=== PATIENT | male | born 1945 | race Caucasian/White ===

== ENCOUNTER 2018-02-05 20:33 | Inpatient (IN) | payer MEDICARE ==
[~2018-02-05] VITALS: Ht 180.3 cm; Wt 99.4 kg
[~2018-02-05 20:33] MED LIST: CLOP75; ETOD400CR; VALS80
[2018-02-05 21:27] LABS: BASOPHILS ABSOLUTE AUTO 0.11 K/mm3 (0.00-0.23); BASOPHILS PERCENT AUTO 1 % (0-2); EOSINOPHILS ABSOLUTE AUTO 0.45 K/mm3 (0.00-0.68); EOSINOPHILS PERCENT AUTO 6 % (0-6); Hematocrit 43.7 % (37.0-53.0); Hemoglobin 14.7 g/dL (13.5-17.5); IMMATURE GRAN ABSOLUTE AUTO 0.01 K/mm3 (0.00-0.10); IMMATURE GRAN PERCENT AUTO 0 % (0-1); LYMPHOCYTES ABSOLUTE AUTO 1.72 K/mm3 (0.84-5.20); LYMPHOCYTES PERCENT AUTO 23 % (21-46); MONOCYTES ABSOLUTE AUTO 0.76 K/mm3 (0.16-1.47); MONOCYTES PERCENT AUTO 10 % (4-13); Mean Corpuscular HGB 29.2 pg (26.0-34.0); Mean Corpuscular HGB Conc 33.6 g/dL (31.5-36.5); Mean Corpuscular Volume 87 fL (80-100); NEUTROPHILS ABSOLUTE AUTO 4.55 K/mm3 (1.96-9.15); NEUTROPHILS PERCENT AUTO 60 % (41-73); Platelet Count 232 K/mm3 (150-400); RDW Coefficient Variation 11.9 % (11.7-14.2); RDW Standard Deviation 38.2 fL (35.1-46.3); Red Blood Cell Count 5.04 M/mm3 (4.30-5.90)
[2018-02-05] MEDS ORDERED: GABA300 (21:49)
[2018-02-05] MEDS ORDERED: BP MEDICATION (21:50)
[2018-02-05 21:51] LABS: Albumin, Blood 3.9 g/dL (3.4-5.0); Bilirubin, Total 1.5 mg/dL (0.1-1.0); Bun/Creatinine Ratio 9.3 (12.0-20.0); Calcium, Blood 9.5 mg/dL (8.5-10.1); Creatinine, Blood 1.4 mg/dL (0.60-1.20); Potassium, Blood 3.6 mmol/L (3.5-5.5); Total Protein, Blood 7.9 g/dL (6.4-8.2)
[2018-02-05 23:01] LABS: Troponin I 0.028 ng/mL (0.000-0.040)
[2018-02-05 23:03] LABS: Thyroid Stimulating Hormone 1.36 uIU/mL (0.360-4.800)
[2018-02-06 00:18] LABS: Source, Urine Clean Catch
[2018-02-06 00:22] LABS: Bilirubin, Urine Neg (Neg); Blood, Urine 1+ (Neg); Glucose Qualitative, Urine Neg (Neg); Ketones, Urine 3+ (Neg); Leukocyte Esterase, Urine 1+ (Neg); Nitrite, Urine Neg (Neg); Protein, Urine 2+ (Neg); Urobilinogen, Urine NORM (Normal)
[2018-02-06 00:28] LABS: Appearance, Urine Clear (Clear); Color, Urine Yellow (P-Yellow)
[2018-02-06 00:29] LABS: Red Blood Cells, Urine 0-2 /hpf (0-2)
[2018-02-06 00:30] LABS: Bacteria Many /hpf; Mucus Mod (0-Heavy); Squamous Epithelial Cells Not Seen /hpf (Few)
[2018-02-06 00:41] LABS: CHOL/HDL RATIO 3.2; Cholesterol 165 mg/dL (50-200); HDL Cholesterol 52 mg/dL (>39); LDL/HDL RATIO 1.6; Low Density Lipoprotein Chol 84 mg/dL (0-110); Triglycerides 144 mg/dL (30-160); Very Low Density Lipoprot Chol 28 mg/dL (6-32)
[2018-02-06] MEDS ORDERED: GABA300 PO (02:07)
[2018-02-06] MEDS ORDERED: METO25ER PO (02:10)
== END 2018-02-06 17:40 | disposition short-term general hospital (02) | DRG 287 ==
LOC: ER 20:33 → PCU 02-06 00:19
PROVIDERS: Emergency Medicine
PROC: B2111ZZ Fluoroscopy of Multiple Coronary Arteries using Low Osmolar Contrast (ICD-10-PCS; principal; 2018-02-06)
PROC: B241ZZ3 Ultrasonography of Multiple Coronary Arteries, Intravascular (ICD-10-PCS; 2018-02-06)
DX: I25.110 Atherosclerotic heart disease of native coronary artery with unstable angina pectoris (principal); E78.5 Hyperlipidemia, unspecified; G62.9 Polyneuropathy, unspecified; G89.4 Chronic pain syndrome; R63.8 Other symptoms and signs concerning food and fluid intake; I11.9 Hypertensive heart disease without heart failure; I25.2 Old myocardial infarction; E66.09 Other obesity due to excess calories; G47.30 Sleep apnea, unspecified; Z95.5 Presence of coronary angioplasty implant and graft; Z86.73 Personal history of transient ischemic attack (TIA), and cerebral infarction without residual deficits; N40.1 Benign prostatic hyperplasia with lower urinary tract symptoms; N13.9 Obstructive and reflux uropathy, unspecified; K25.9 Gastric ulcer, unspecified as acute or chronic, without hemorrhage or perforation
CPT/HCPCS: 36415; 71046; 80053; 80061; 81001; 84443; 84484; 85025; 85347; 85379; 87086; 92978; 93005; 93010; 93306; 93454; 96374; 99152; 99153; 99285-25; C1753; C1769; C1887; C1894; J1644; J1650; J2250; J3010; J7030; J7040; Q9967

== ENCOUNTER 2018-12-22 18:16 | Emergency (ER) | payer MEDICARE ==
[~2018-12-22] VITALS: Ht 180.3 cm; Wt 111.1 kg
[~2018-12-22 18:16] MED LIST changes: +BP MEDICATION; +GABA300; +GABA300 PO; +METO25ER PO
[2018-12-22 18:46] LABS: BASOPHILS ABSOLUTE AUTO 0.06 K/mm3 (0.00-0.23); BASOPHILS PERCENT AUTO 1 % (0-2); EOSINOPHILS ABSOLUTE AUTO 0.05 K/mm3 (0.00-0.68); EOSINOPHILS PERCENT AUTO 1 % (0-6); Hematocrit 39.2 % (37.0-53.0); Hemoglobin 12.7 g/dL (13.5-17.5); IMMATURE GRAN ABSOLUTE AUTO 0.03 K/mm3 (0.00-0.10); IMMATURE GRAN PERCENT AUTO 0 % (0-1); LYMPHOCYTES ABSOLUTE AUTO 1.37 K/mm3 (0.84-5.20); LYMPHOCYTES PERCENT AUTO 13 % (21-46); MONOCYTES ABSOLUTE AUTO 0.91 K/mm3 (0.16-1.47); MONOCYTES PERCENT AUTO 9 % (4-13); Mean Corpuscular HGB 28.9 pg (26.0-34.0); Mean Corpuscular HGB Conc 32.4 g/dL (31.5-36.5); Mean Corpuscular Volume 89 fL (80-100); Mean Platelet Volume 9.1 fL (9.1-12.4); NEUTROPHILS ABSOLUTE AUTO 8.33 K/mm3 (1.96-9.15); NEUTROPHILS PERCENT AUTO 77 % (41-73); Platelet Count 324 K/mm3 (150-400); RDW Coefficient Variation 12.2 % (11.7-14.2); RDW Standard Deviation 39.9 fL (35.1-46.3); Red Blood Cell Count 4.39 M/mm3 (4.30-5.90); White Blood Cell Count 10.75 K/mm3 (4.00-11.30)
[2018-12-22] MEDS ORDERED: LOSARTAN POTAS100 MG PO (18:49)
[2018-12-22] MEDS ORDERED: OXYC5 PO (18:50)
[2018-12-22] MEDS ORDERED: ROSU5 PO (18:50)
[2018-12-22] MEDS ORDERED: Mirapex0.25 MG PO (18:51)
[2018-12-22] MEDS ORDERED: FERSU300 PO (18:52)
[2018-12-22] MEDS ORDERED: Aspir 8181 MG PO (18:52)
[2018-12-22] MEDS ORDERED: DULO30 PO (18:53)
[2018-12-22] MEDS ORDERED: METO50 PO (18:54)
[2018-12-22 19:02] LABS: Albumin, Blood 3.3 g/dL (3.4-5.0); Albumin/Globulin Ratio 0.7 (0.8-1.8); Bun/Creatinine Ratio 9.6 (12.0-20.0); Calcium, Blood 9.6 mg/dL (8.5-10.1); Creatinine, Blood 2.18 mg/dL (0.60-1.20); Globulin, Blood 4.9 g/dL (2.2-4.0); Potassium, Blood 3.4 mmol/L (3.5-5.5); Total Protein, Blood 8.2 g/dL (6.4-8.2)
[2018-12-22] MEDS ORDERED: ONDA4ODT MM (19:59)
[2019-01-24] MEDS ORDERED: DULO60 PO (19:12)
[2019-01-24] MEDS ORDERED: METO50ER PO (23:10)
[2019-01-24] MEDS ORDERED: ACET500 PO (23:27)
[2019-01-31] MEDS ORDERED: METO25ER PO (17:10)
[2019-01-31] MEDS ORDERED: CLON.1 PO (17:11)
[2019-01-31] MEDS ORDERED: Avodart0.5 MG PO (17:11)
[2019-01-31] MEDS ORDERED: HYDRA25 PO (17:12)
[2019-01-31] MEDS ORDERED: TAMS.4ER PO (17:13)
== END 2018-12-22 20:57 | disposition home or self-care (01) ==
LOC: ER 18:16
PROVIDERS: Emergency Medicine
DX: M54.5 Low back pain (principal); G89.29 Other chronic pain; R11.2 Nausea with vomiting, unspecified; R53.1 Weakness; I10 Essential (primary) hypertension; Z88.0 Allergy status to penicillin; Z88.2 Allergy status to sulfonamides; Z88.5 Allergy status to narcotic agent; Z79.899 Other long term (current) drug therapy
CPT/HCPCS: 80053; 83690; 85025; 99283; J7030

== ENCOUNTER 2019-01-16 13:55 | Inpatient (IN) | payer MEDICARE ==
[~2019-01-16] VITALS: Ht 177.8 cm; Wt 110.2 kg
[~2019-01-16 13:55] MED LIST changes: +Aspir 8181 MG PO; +DULO30 PO; +FERSU300 PO; +LOSARTAN POTAS100 MG PO; +METO50 PO; +Mirapex0.25 MG PO; +ONDA4ODT MM; +OXYC5 PO; +ROSU5 PO
[2019-01-16 15:09] LABS: BASOPHILS ABSOLUTE AUTO 0.07 K/mm3 (0.00-0.23); BASOPHILS PERCENT AUTO 1 % (0-2); EOSINOPHILS ABSOLUTE AUTO 0.19 K/mm3 (0.00-0.68); EOSINOPHILS PERCENT AUTO 2 % (0-6); Hematocrit 38.7 % (37.0-53.0); Hemoglobin 12.3 g/dL (13.5-17.5); IMMATURE GRAN ABSOLUTE AUTO 0.03 K/mm3 (0.00-0.10); IMMATURE GRAN PERCENT AUTO 0 % (0-1); LYMPHOCYTES PERCENT AUTO 24 % (21-46); MONOCYTES ABSOLUTE AUTO 0.83 K/mm3 (0.16-1.47); MONOCYTES PERCENT AUTO 9 % (4-13); Mean Corpuscular HGB 28.3 pg (26.0-34.0); Mean Corpuscular HGB Conc 31.8 g/dL (31.5-36.5); Mean Corpuscular Volume 89 fL (80-100); Mean Platelet Volume 9.6 fL (9.1-12.4); NEUTROPHILS ABSOLUTE AUTO 6.01 K/mm3 (1.96-9.15); NEUTROPHILS PERCENT AUTO 64 % (41-73); Platelet Count 235 K/mm3 (150-400); RDW Coefficient Variation 12.5 % (11.7-14.2); RDW Standard Deviation 41.1 fL (35.1-46.3); Red Blood Cell Count 4.34 M/mm3 (4.30-5.90); White Blood Cell Count 9.43 K/mm3 (4.00-11.30)
[2019-01-16 15:27] LABS: Albumin, Blood 3.4 g/dL (3.4-5.0); Albumin/Globulin Ratio 0.8 (0.8-1.8); Bilirubin, Total 1.5 mg/dL (0.1-1.0); Creatinine, Blood 2.16 mg/dL (0.60-1.20); Globulin, Blood 4.4 g/dL (2.2-4.0); Potassium, Blood 3.9 mmol/L (3.5-5.5); Total Protein, Blood 7.8 g/dL (6.4-8.2)
[2019-01-17 04:06] LABS: Bun/Creatinine Ratio 10.7 (12.0-20.0); Calcium, Blood 8.7 mg/dL (8.5-10.1); Creatinine, Blood 2.15 mg/dL (0.60-1.20); Potassium, Blood 3.8 mmol/L (3.5-5.5)
[2019-01-17 04:17] LABS: International Normalized Ratio 1.01; Prothrombin Time Results 10.7 Sec (9.7-11.5)
--- NOTE | 2019-01-17 04:17 | NUR ---
Patient admitted at the beginning of the shift. pain associated with lt hip has been sharp and constant, good pain relief with medications and repositioning. Patient has urgency incontinence and wears and attends. He is hard of hearing with low voices. bed changed this am, dilaudid given for acute lt hip pain after movement. patient also had nausea after turning with assisstance.
--- NOTE | 2019-01-17 11:23 | NUR ---
PT TAKEN TO DAY SURGERY AT APPROXIMATELY 1042. WILL CONTINUE TO MONITOR.
--- NOTE | 2019-01-17 16:20 | NUR ---
PT ARRIVED BACK TO THE ROOM AT APPROXIMATELY 1345. PT ALERT AND ORIENTED, DENIED PAIN. AQUACEL DRESSING TO L HIP C/D/I.
--- NOTE | 2019-01-17 18:40 | NUR ---
SHIFT SUMMARY PAIN HAS BEEN MANAGED WITH OXYCODONE POST-OP. PT IS TOLERATING PO WELL. VSS. WILL MONITOR UNTIL REPORT TO ONCOMING RN.
--- NOTE | 2019-01-18 07:19 | NUR ---
SUMMARY: POD 1 LEFT HIP FX PINNING BY DR. CONWAY. VSS, AFEBRILE, TOLERATED REG DIET WITH 1 EPISODE OF N/V IN NOC THAT WEA RELIEVED BY IV REGLAN. PT UP WITH 1 ASSIST FWW AND GB FOR 50 FOOT WALK AND BRP. CONFUSED @ TIMES BUT USES CALL LIGHT APPROPRIATELY. ANTICIPATE PT/OT LATER THIS DAY AND PROBABLE SNF TRANSFER BEFORE RETURNING HOME WITH .
--- NOTE | 2019-01-18 15:55 | NUR ---
SHIFT SUMMARY POD1 L-HIP FX REPAIR. VSS, A0X4 DURING SHIFT. PT WALKED WITH PT/OT DURING SHIFT, TOLERATED WELL. PAIN MANAGED WITH OXY 10MG X1 PRN AND SCHEDULED TYLENOL. MEDICATED FOR NAUSEA X1 WITH NEW ORDER, EFFECTIVE PER PT REPORT. PT HOPEFUL FOR HOME WITH HOME HEALTH TOMORROW.
--- NOTE | 2019-01-19 07:00 | NUR ---
REPORT FROM SUMMER RN. ASSUMED PT CARE. PT LYING IN POSITION OF COMFORT.
--- NOTE | 2019-01-19 07:45 | NUR ---
VSS. ASSESSMENT CHARTED.
--- NOTE | 2019-01-19 07:55 | NUR ---
PT MEDICATED WITH SCHEDULED MEDS. PT STATES PAIN MANAGEABLE. WILL CONT TO MONITOR.
--- NOTE | 2019-01-19 08:45 | NUR ---
PT SITTING UP IN BED, EATING BREAKFAST. NADN. CALL LIGHT IN REACH.
--- NOTE | 2019-01-19 08:48 | NUR ---
PT SITTING UP IN CHAIR. PT EATING BREAKFAST.
--- NOTE | 2019-01-19 09:30 | NUR ---
ASSISTED PT UP TO CHAIR, USES WALKER APPROPRIATELY. PT HAD SATURATED BED IN URINE. PER CARE PROVIDED, LINENS REMOVED. NEW PULLUP PLACED. CALL LIGHT IN REACH.
--- NOTE | 2019-01-19 11:23 | NUR ---
PT MEDICATED WITH PRN MEDS. PT WORKING WITH THERAPY,
--- NOTE | 2019-01-19 12:13 | NUR ---
BROUGHT CLOTHES. PT SITTING IN CHAIR. PAIN IMPROVED.
--- NOTE | 2019-01-19 13:15 | NUR ---
PT SITTING UP IN CHAIR. NADN. CALL LIGHT IN REACH.
--- NOTE | 2019-01-19 13:57 | NUR ---
Spiritual care visit conducted. Povided pastoral family court counsellor, comapnionship and prayer. Patient and spouse, Celia responded well.
--- NOTE | 2019-01-19 14:00 | NUR ---
PT SPOUSE TO [place] "WE NEED SOME HELP IN HERE, HE FELL," THIS RN TO ROOM, PT NOTED ON FLOOR ON RIGHT HIP, WEDGED BETWEEN CHAIR AND SINK, TANGELED IN WALKER. THIS RN CALLED FOR ASSITANCE. CHARITY WITH PT, SOURAV RN TO ROOM. PT ROLLED TO LEFT SIDE AND ONTO KNEES, GAIT BELT USED AND WALKER TO STAND PT. REDNESS TO FOREHEAD, SKIN TEAR TO LEFT FA. SKIN TEAR CLEANED AND DRESSED. PT DENIES PAIN. CHARGE NURSE AWARE"
--- NOTE | 2019-01-19 14:05 | NUR ---
PT BACK IN CHAIR WITH STRICT INSTRUCTIONS TO CALL FOR ANY ASSISTANCE. TAB ALARM IN PLACE. 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
--- NOTE | 2019-01-19 14:20 | NUR ---
SPOKE WITH DR CONWAY RE PT FALL. NO ORDERS RECEIVED. PLAN TO NOTIFY PT HOSPITALIST DR RAMIREZ.
--- NOTE | 2019-01-19 15:20 | NUR ---
ATTEMPT TO CALL DR RAMIREZ AGAIN. PT IN NO DISTRESS. FAMILY AT BEDSIDE AWAITING PLAN UPDATE.
--- NOTE | 2019-01-19 17:15 | NUR ---
ASSISTED PT TO IMAGING CART FOR STAT XRAYS. PT CONFUSED, WOBBLY ON LEGS.
--- NOTE | 2019-01-19 18:38 | NUR ---
DR RAMIREZ AWARE OF NEGATIVE IMAGING. PT UPDATED. PLAN TO KEEP PT OVERNIGHT FOR RE-EVAL WITH PROVIDER AND THERAPY TMRW.
--- NOTE | 2019-01-20 05:14 | NUR ---
NO ACUTE CHANGES. NO ADVERSE ISSUES AFTER HIS FALL ON DAYSHIFT. HE HAS SLEPT THROUGHTOUT THE NIGHT. MOVING TO POSITION OF COMFORT.HE IS INCONTINENT OF URINE. CALL LIGHT IN REACH.
--- NOTE | 2019-01-20 08:29 | NUR ---
DR SHEARER HERE EARLIER, DISCUSSED PT'S STATUS INCLUDING VS, MEDICATIONS.
--- NOTE | 2019-01-20 13:35 | NUR ---
DR VASU CONWAY BEEN TO SEE PT RECENTLY.
--- NOTE | 2019-01-20 17:28 | NUR ---
DISCUSSED PT'S STATUS WITH DR SHEARER.
--- NOTE | 2019-01-20 19:05 | NUR ---
SHIFT SUMMARY PT EATING AND DRINKING. PT BEEN ASSISTED WITH ADL'S PRN. PT BEEN ENC UP WITH ASSIST. TAB ALARM BEEN IN PLACE, PT USING CALL LIGHT APPR. PT BEEN ENC WITH BOWEL CARE.
--- NOTE | 2019-01-21 04:49 | NUR ---
PATIENT HAS SLEPT FOR HALF OF THE NIGHT. HE IS INTERMITTENTLY INCONTINENT. WE WALKED IN THE [place] AND HE DID VERY WELL. C/O OF LT KNEE PAIN FROM AN OLD INJURY AND POSSIBLY FROM HIS FALL YESTERDAY. APPROPRIATE WITH CALL LIGHT AND UNDERSTANDS NOT TO GET OUT OF BED BY HIS SELF. CALL LIGHT WITHIN REACH.
[2019-01-21 07:05] LABS: Hemoglobin 11.4 g/dL (13.5-17.5)
[2019-01-21 07:19] LABS: Bun/Creatinine Ratio 19.4 (12.0-20.0); Calcium, Blood 8.8 mg/dL (8.5-10.1); Creatinine, Blood 2.63 mg/dL (0.60-1.20); Potassium, Blood 4.8 mmol/L (3.5-5.5)
--- NOTE | 2019-01-21 12:00 | NUR ---
DISCHARGE TO [facility] PT EATING AND DRINKING. PASSING GAS. PT GIVEN MULT BOWEL CARE THIS AM. REPORTS FEELING IF HE WILL HAVE BM SOON. PT TO SNF BY TRANSPORT WITH BELONGINGS AND SCRIPTS. FAMILY WAS AWARE YESTERDAY THAT PT WAS GOING TO SNF TODAY. BUTTON AND BUCKLE MAKER ASSISTED WITH DISCHARGE. PT SENT WITH CPAP. REPORT GIVEN TO CLARENCE AT [facility] PT WAS TAKEN OUT AT 11:40 BY TRANSPORT.
[2019-01-24] MEDS ORDERED: DULO60 PO (19:12)
[2019-01-24] MEDS ORDERED: METO50ER PO (23:10)
[2019-01-24] MEDS ORDERED: ACET500 PO (23:27)
[2019-01-31] MEDS ORDERED: METO25ER PO (17:10)
[2019-01-31] MEDS ORDERED: CLON.1 PO (17:11)
[2019-01-31] MEDS ORDERED: Avodart0.5 MG PO (17:11)
[2019-01-31] MEDS ORDERED: HYDRA25 PO (17:12)
[2019-01-31] MEDS ORDERED: TAMS.4ER PO (17:13)
== END 2019-01-21 11:44 | DRG 482 ==
LOC: ER 13:55 → SURS 13:56 → ER 13:56 → SURS 18:08
PROVIDERS: Orthopaedic Surgery; Physician Assistant; ADMIT Family Medicine
PROC: 0QH734Z Insertion of Internal Fixation Device into Left Upper Femur, Percutaneous Approach (ICD-10-PCS; principal; 2019-01-17 11:00)
DX: S72.002A Fracture of unspecified part of neck of left femur, initial encounter for closed fracture (principal); I12.9 Hypertensive chronic kidney disease with stage 1 through stage 4 chronic kidney disease, or unspecified chronic kidney disease; I25.10 Atherosclerotic heart disease of native coronary artery without angina pectoris; E78.5 Hyperlipidemia, unspecified; G25.81 Restless legs syndrome; N18.3 Chronic kidney disease, stage 3 (moderate); D63.1 Anemia in chronic kidney disease; G47.33 Obstructive sleep apnea (adult) (pediatric); I25.2 Old myocardial infarction; Z88.5 Allergy status to narcotic agent; Z88.0 Allergy status to penicillin; Z88.2 Allergy status to sulfonamides; Z79.82 Long term (current) use of aspirin; Z79.899 Other long term (current) drug therapy; S70.01XA Contusion of right hip, initial encounter; W18.30XA Fall on same level, unspecified, initial encounter
CPT/HCPCS: 36415; 71046; 72148; 73502; 73562-RT; 80048; 80053; 85014; 85018; 85025; 85610; 86850; 86900; 86901; 93005; 93010; 94762; 96374; 96375; 97110; 97116; 97162; 97166; 97530; 97535; 99285-25; C1713; C1769; J0690; J0780; J1100; J1170; J1650; J2370; J2405; J2704; J2765; J3010; J7042

== ENCOUNTER 2019-01-24 17:12 | Inpatient (IN) | payer MEDICARE ==
[~2019-01-24] VITALS: Ht 185.4 cm; Wt 109.1 kg
[2019-01-24] MEDS ORDERED: GABA300 PO ×2 (17:22→23:16)
[2019-01-24 17:48] LABS: BASOPHILS ABSOLUTE AUTO 0.06 K/mm3 (0.00-0.23); BASOPHILS PERCENT AUTO 1 % (0-2); EOSINOPHILS ABSOLUTE AUTO 0.24 K/mm3 (0.00-0.68); EOSINOPHILS PERCENT AUTO 2 % (0-6); Hematocrit 32.9 % (37.0-53.0); Hemoglobin 10.3 g/dL (13.5-17.5); IMMATURE GRAN ABSOLUTE AUTO 0.06 K/mm3 (0.00-0.10); IMMATURE GRAN PERCENT AUTO 1 % (0-1); LYMPHOCYTES ABSOLUTE AUTO 1.92 K/mm3 (0.84-5.20); LYMPHOCYTES PERCENT AUTO 19 % (21-46); MONOCYTES ABSOLUTE AUTO 0.84 K/mm3 (0.16-1.47); MONOCYTES PERCENT AUTO 8 % (4-13); Mean Corpuscular HGB 28.6 pg (26.0-34.0); Mean Corpuscular HGB Conc 31.3 g/dL (31.5-36.5); Mean Corpuscular Volume 91 fL (80-100); Mean Platelet Volume 9.3 fL (9.1-12.4); NEUTROPHILS ABSOLUTE AUTO 6.91 K/mm3 (1.96-9.15); NEUTROPHILS PERCENT AUTO 69 % (41-73); Platelet Count 293 K/mm3 (150-400); RDW Coefficient Variation 12.8 % (11.7-14.2); RDW Standard Deviation 42.3 fL (35.1-46.3); White Blood Cell Count 10.03 K/mm3 (4.00-11.30)
[2019-01-24 18:01] LABS: Source, Urine Catheter
[2019-01-24 18:04] LABS: PCO2 Arterial 48.8 mmHg (35-45); PO2 Arterial 61.6 mmHg (80-100); pH Blood Arterial 7.32 (7.35-7.45)
[2019-01-24 18:10] LABS: Bilirubin, Urine Neg (Neg); Blood, Urine Neg (Neg); Glucose Qualitative, Urine Neg (Neg); Ketones, Urine Neg (Neg); Leukocyte Esterase, Urine Neg (Neg); Nitrite, Urine Neg (Neg); Protein, Urine Neg (Neg); Urobilinogen, Urine NORM (Normal)
[2019-01-24 18:16] LABS: Appearance, Urine Clear (Clear); Color, Urine Yellow (P-Yellow)
[2019-01-24 18:29] LABS: Albumin, Blood 2.7 g/dL (3.4-5.0); Albumin/Globulin Ratio 0.6 (0.8-1.8); Bilirubin, Total 0.5 mg/dL (0.1-1.0); Bun/Creatinine Ratio 16.8 (12.0-20.0); Calcium, Blood 8.9 mg/dL (8.5-10.1); Creatinine, Blood 4.22 mg/dL (0.60-1.20); Globulin, Blood 4.3 g/dL (2.2-4.0); Potassium, Blood 6.1 mmol/L (3.5-5.5)
[2019-01-24] MEDS ORDERED: DULO60 PO ×2 (19:12)
[2019-01-24] MEDS ORDERED: METO50ER PO ×2 (23:10)
[2019-01-24] MEDS ORDERED: ACET500 PO ×2 (23:27)
[2019-01-25 00:43] LABS: Bun/Creatinine Ratio 17.2 (12.0-20.0); Calcium, Blood 8.9 mg/dL (8.5-10.1); Creatinine, Blood 3.96 mg/dL (0.60-1.20); Potassium, Blood 5.5 mmol/L (3.5-5.5)
[2019-01-25 00:47] LABS: U Amphetamine Screen Not Detected; U Barbituate Screen Not Detected; U Benzodiazapine Screen Not Detected; U Buprenorphine Screen Not Detected; U Cannabinoids Screen Not Detected; U Cocaine Screen Not Detected; U Methadone Screen Not Detected; U Methamphetamine Screen Not Detected; U Opiates Screen Not Detected; U Oxycodone Screen Not Detected; U Phencyclidine Screen Not Detected; U Propoxyphene Screen Not Detected
[2019-01-25 03:52] LABS: Hematocrit 34.5 % (37.0-53.0); Hemoglobin 10.6 g/dL (13.5-17.5); Mean Corpuscular HGB 28.4 pg (26.0-34.0); Mean Corpuscular HGB Conc 30.7 g/dL (31.5-36.5); Mean Corpuscular Volume 93 fL (80-100); Mean Platelet Volume 9.4 fL (9.1-12.4); Platelet Count 276 K/mm3 (150-400); RDW Coefficient Variation 12.7 % (11.7-14.2); RDW Standard Deviation 43.5 fL (35.1-46.3); Red Blood Cell Count 3.73 M/mm3 (4.30-5.90); White Blood Cell Count 8.59 K/mm3 (4.00-11.30)
[2019-01-25 04:18] LABS: Alanine Aminotransfer (ALT/SGP <6 U/L (12-78); Albumin, Blood 2.7 g/dL (3.4-5.0); Albumin/Globulin Ratio 0.6 (0.8-1.8); Alk Phos 115 U/L (50-136); Anion Gap 6 mmol/L (6-16); Aspartate Aminotrans (AST/SGOT 11 U/L (12-37); Bilirubin, Total 0.4 mg/dL (0.1-1.0); Blood Urea Nitrogen 67 mg/dL (8-24); Bun/Creatinine Ratio 16.5 (12.0-20.0); CO2, Blood 28 mmol/L (21-32); Calcium, Blood 8.9 mg/dL (8.5-10.1); Chloride, Blood 105 mmol/L (98-108); Creatinine, Blood 4.05 mg/dL (0.60-1.20); Globulin, Blood 4.3 g/dL (2.2-4.0); Glomerular Filtration Rate 15 (60-); Glucose, Blood 119 mg/dL (70-99); Potassium, Blood 5.5 mmol/L (3.5-5.5); Sodium, Blood 139 mmol/L (136-145)
[2019-01-25 05:15] LABS: PCO2 Arterial 52.4 mmHg (35-45); PO2 Arterial 66.4 mmHg (80-100)
--- NOTE | 2019-01-25 06:03 | NUR ---
PCU NOC SHIFT SUMMARY PATIENT IS DISORIENTED AND LETHARGIC T/O SHIFT AND UPON ARRIVAL FROM THE EMERGENCY DEPARTMENT. PATIENT HAD A LEFT HIP FX ON 01/18/19, HAD SURGICAL INTERVENTION AND WAS DISCHARGED FROM SURGICAL UNIT WALKING WITH FWW ON THE TO [facility] FOR PT/OT. PATIENT WAS FOUND TO BE CONFUSED/LETHARGIC AND TOOK AND AMBULANCE TO THE HOSPITAL - PATIENTS IS VERY UPSET REGARDING PATIENTS CARE AT [facility] AND REFUSES TO HAVE HIM RETURN - PER PATIENTS PATIENT HAS NOT BEEN TAKING GABAPENTIN FOR SOME TIME AND APPARENTLY [facility] PATIENT HAS BEEN RECIEVING GABAPENTIN - WHICH HISTORICALLY MAKES HIM VERY LETHARGIC AND ODD - IS ALSO A RENAL IMPAIRING MEDICATION. PATIENT RECIEVING FLUIDS PER EMAR AND RECIEVED A MARIE CATH PER BLADDER SCAN OF 850 MLS NOTED - URINE IS RED/PINK IN COLOR. PATIENT IS ALSO INCONTINENT OF BOWEL THIS SHIFT X4. PATIENT NSR WITH BBB AND NO EVENTS NOTED T/O SHIFT PER REGULATORY ANALYST. PATIENTS L/S DIM T/O - [facility] - HOSPITAL CPAP IN PLACE. PATIENT DENIES ANY NEEDS AT THIS TIME; WILL CONTINUE TO MONITOR AND GIVE REPORT TO DAYSHIFT RN.
--- NOTE | 2019-01-25 11:18 | NUR ---
UPDATE NEURO STATUS REASSESSED. PT ALERT TO SELF AND DATE. PT MUCH MORE ALERT AND ASKING WHERE HE IS AND HOW LONG HE HAS BEEN HERE. PT DOES NOT REMEMBER AND ANYTHING ABOUT BEING ADMITTED TO THE HOSPITAL. AT BEDSIDE STATES HER IS "BACK TO HIMSELF". VS STABLE. CPAP REMOVED AND PT PLACED ON 2L NC. MARIE IN PLACE DRAINING RED TINGED URINE. WILL CONTINUE TO MONITOR CLOSELY.
--- NOTE | 2019-01-25 14:28 | NUR ---
Patient is lying in bed and alert with spouse, Celia, bedside. Patient is confused when conversation first began and Celia did most of the talking but within 20 minutes or so patient engaged in the conversation. Patient actually became the primary contributor to the dialogue. Patient and Celia told many stories of near experiences, of their [employer]ism shiela and of the deep love and appreciation they have for each other. Celia told me that she had a very disappointing experience at a local rehabilitation center and insist that the patient go home with her upon discharge rather than return to that facility. I voiced some concerns with this plans based on what Celia told me about her recent back surgeries. Patient and Celia did not express any spiritual concerns but did admit that the frequency of medical issues between the two of them over the last year have caused them to grow weary. Celia also said that they feel in limbo as they wait for test results to return to find out what the next steps are regarding patient's plan of care. I listen empathically and provide a calming presence and prayer. Patient and Celia respond well and verbalize appreciation for the visit.
--- NOTE | 2019-01-25 18:34 | NUR ---
SHIFT SUMMARY PT ALERT AND ORIENTED AT THIS TIME. UPON WAKING HE IS CONFUSED ABOUT WHERE HE IS, BUT REORIENTS QUICKLY. VS STABLE. O2 SATS REMAIN ABOVE 90% ON 2L NC. MARIE CATHETER IN PLACE STILL DRAINING BRIGHT RED TINGED URINE. PT CALLING APPROPRIATELY. WILL CONTINUE TO MONITOR AND REPORT TO ONCOMING RN. CALL LIGHT IN REACH.
--- NOTE | 2019-01-25 23:36 | NUR ---
PROVIDER CONTACTED PT REQUESTING MEDICATION FOR RESTLESS LEG SYNDROME THAT HE TAKES AT HOME. JORDYN GERMAIN CONTACTED. NO ORDER RECEIVED AT THIS TIME R/T ENCEPHALOPATHY. PROVIDER STATES THAT SHE WILL LOOK AT PATIENT'S CHART AND HISTORY AND POTENTIALLY PUT ORDERS IN.
[2019-01-26 03:39] LABS: Hematocrit 34.3 % (37.0-53.0); Hemoglobin 10.8 g/dL (13.5-17.5)
[2019-01-26 04:02] LABS: Albumin, Blood 2.6 g/dL (3.4-5.0); Anion Gap 4 mmol/L (6-16); Blood Urea Nitrogen 61 mg/dL (8-24); Bun/Creatinine Ratio 17.6 (12.0-20.0); CO2, Blood 28 mmol/L (21-32); Calcium, Blood 8.9 mg/dL (8.5-10.1); Chloride, Blood 105 mmol/L (98-108); Creatinine, Blood 3.47 mg/dL (0.60-1.20); Glomerular Filtration Rate 18 (60-); Glucose, Blood 169 mg/dL (70-99); Magnesium, Blood 2.2 mg/dL (1.6-2.4); Phosphorus, Blood 3.7 mg/dL (2.5-4.9); Potassium, Blood 5.6 mmol/L (3.5-5.5); Sodium, Blood 137 mmol/L (136-145)
[2019-01-26 04:03] LABS: Prostate Specific Antigen 0.709 ng/mL (0.000-4.000)
--- NOTE | 2019-01-26 05:27 | NUR ---
SHIFT SUMMARY PT HAS REMAINED AOX3-4 THROUGHOUT THE NIGHT WITH SOME EPISODES OF DISORIENTATION, BUT RE-ORIENTS WELL AND ASKS APPROPRIATE QUESTIONS. USING CALL LIGHT APPROPRIATELY. VSS. HAS BEEN VERY PLEASANT AND COOPERATIVE WITH CARE. PT HAS REMAINED ON BEDREST THROUGHOUT SHIFT AND SLEPT ON AND OFF THROUGHOUT THE NIGHT WITH CPAP IN PLACE. O2 SATS HAVE REMAINED >90% ON 1L VIA NASAL CANNULA OR CPAP; DENIES DYSPNEA. MEDICATED TWICE FOR PAIN IN BACK THAT DECREASED WITH TYLENOL. MEDICATED ONCE FOR NAUSEA THAT DECREASED WITH ORDERED MEDICATIONS. MARIE HAS REMAINED IN PLACE, PATENT AND DRAINING TO GRAVITY. URINE STILL NOTED TO BE RED-TINGED, BUT CLEAR. NO OTHER CHANGES NOTED FROM INITIAL ASSESSMENT. WILL CONTINUE TO MONITOR AND REPORT TO ONCOMING SHIFT RN. BED IN LOW POSITION, CALL LIGHT IN REACH. BED ALARM SET FOR SAFETY.
--- NOTE | 2019-01-26 08:11 | NUR ---
NURSING PCU DAYSHIFT: Assumed care of pt at approx 0700. A/O, [place], pleasant, cooperative w/care. General weakness noted, requires assistance w/repositioning, limited movement of L hip r/t recent sx. Dressing in place to L hip, CDI, skin otherwise intact w/no breakdown noted. Tele in place, NSR w/BBB, HTN prior to a.m. meds, no noted edema. L/S fairly cta w/dim bases, denies dyspnea, O2 sat upper 90's on RA. Abd SNT, BT+, FC in place for retention, bright red, no sediment. PIV x2. Pt denies any current needs or questions regarding plan of care. Requests mirapex at night for restless leg, may be able to start PT/OT, will discuss w/PMD. Seen by library clerk talking books, new d/o received for IVF. Call light in reach, cont to monitor for any changes.
[2019-01-26 10:57] LABS: Source, Urine Catheter
[2019-01-26 11:24] LABS: Bilirubin, Urine Neg (Neg); Blood, Urine 5+ (Neg); Glucose Qualitative, Urine 1+ (Neg); Ketones, Urine Neg (Neg); Leukocyte Esterase, Urine 2+ (Neg); Nitrite, Urine Neg (Neg); Protein, Urine 4+ (Neg); Specific Gravity, Urine 1.015 (1.003-1.022); Urobilinogen, Urine NORM (Normal)
[2019-01-26 11:31] LABS: Appearance, Urine Bloody (Clear); Color, Urine Red (P-Yellow)
[2019-01-26 11:33] LABS: Red Blood Cells, Urine TNTC /hpf (0-2)
[2019-01-26 11:34] LABS: Bacteria Few /hpf; Squamous Epithelial Cells Not Seen /hpf (Few)
--- NOTE | 2019-01-26 17:46 | NUR ---
NURSING PCU DAYSHIFT/TRANSFER SUMMARY: Pt remained fairly oriented t/o the shift and used the call light w/o difficulty. Bed alarm remained set for safety purposes though pt did not attempt to xfer OOB w/o staff assist. Seen by PMD this a.m. new d/o received. Pt worked with PT/OT this a.m., tolerated fairly well and was able to ambulate w/one staff assist using FWW and gait belt. General weakness remains present, pt states he does not yet feel at baseline in regards to physical strength. Pt was noted to have increased HTN this afternoon w/SBP >200. PMD notified, new d/o received. Administered PRN PO hydralazine along w/new med order of clonidine, f/u SBP noted to be 140's w/HR 95-110. Pt changed to medical status w/tele, bed assignment received. Awaiting report to accepting RNsera to monitor until xfer is completed.
--- NOTE | 2019-01-26 22:49 | NUR ---
1930 PT ADMITTED TO ROOM 361 PER BED FROM PCU.
--- NOTE | 2019-01-27 04:13 | NUR ---
SHIFT SUMMARY: 66 Y/O FEMALE RESTED COMFORTABLY ALL SHIFT, PT AWAKENS TO PAINFUL STIMULI, SPEECH SLIGHTLY GARBLED AT TIMES, PT TOOK ONE AT H.S. AND EARLY SPLIT / WITH SLIGHT DIFFICULTY SWALLOWING AND FOLLOWING VERY SIMPLE VERBAL COMMANDS (PT HAD TO BE COACHED TO HOLD GLASS AND STRAW AND THEN TO SUCK WATER TO ASSIST WITH PILL PASSAGE DOWN THROAT, REQUIRES ASSISTANCE WITH ALL ADLS/IADLS, SCATTERED ECCHYMOTIC BRUISING N0TED ENTIRE BODY, DENIES PAIN OR NAUSEA, BED ALARM APPLIED, BED LOW POSITION, CALL LIGHT AT SIDE.
--- NOTE | 2019-01-27 04:21 | NUR ---
SHIFT SUMMARY: 73 Y/O OBESE MALE RESTED COMFORTABLY ALL SHIFT WITH OCCASIONAL C/O LEFT HIP PAIN RATED 6/10 WITH TYLENOL 650MG PO GIVEN TWICE WITH RELIEF FELT, WORE C/PAP ALL SHIFT, MARIE CONTINUES TO DRAIN LIGHT PINK FLUID, VITAL SIGNS STABLE, ALERT AND ORIENTED X 4, LEFT HIP DRESSING DRY AND INTACT, BED ALARM APPLIED, BED LOW POSITION, CALL LIGHT AT SIDE.
[2019-01-27 05:09] LABS: Hematocrit 33.8 % (37.0-53.0); Hemoglobin 10.4 g/dL (13.5-17.5)
[2019-01-27 05:53] LABS: Magnesium, Blood 1.8 mg/dL (1.6-2.4)
[2019-01-27 05:54] LABS: Albumin, Blood 2.5 g/dL (3.4-5.0); Anion Gap 7 mmol/L (6-16); Blood Urea Nitrogen 45 mg/dL (8-24); Bun/Creatinine Ratio 16.2 (12.0-20.0); CO2, Blood 25 mmol/L (21-32); Chloride, Blood 107 mmol/L (98-108); Creatinine, Blood 2.77 mg/dL (0.60-1.20); Glomerular Filtration Rate 24 (60-); Glucose, Blood 121 mg/dL (70-99); Phosphorus, Blood 3.6 mg/dL (2.5-4.9); Potassium, Blood 4.8 mmol/L (3.5-5.5); Sodium, Blood 139 mmol/L (136-145)
--- NOTE | 2019-01-27 14:23 | NUR ---
Spiritual care visit conducted. 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 I listen empathically and provide companionship. I will continue to remain available to patient and family.
--- NOTE | 2019-01-27 17:34 | NUR ---
Shift Summary A/Ox4. Pt has been c/o hip pain, medicated for pain x 3 this shift. Pain rated between 5-7 and 4-5 after meds given. Physical therapy worked with patient this afternoon. No other acute changes this shift. Pt continues to have hematuria. VSS. Afebrile. Tele: SR 93 c BBB.
--- NOTE | 2019-01-27 18:20 | NUR ---
Physician notified Dr. Gee notified RE: Pt c/o more pain and requesting something stronger. Orders received.
--- NOTE | 2019-01-28 04:28 | NUR ---
SHIFT SUMMARY: 73 Y/O OBESE MALE RESTED COMFORTABLY IN BED ALL SHIFT, MARIE AT BEGINNING OF SHIFT WAS DRAINING LIGHT RED FLUID AND NOW REFLECTS LIGHT YELLOW FLUID, LEFT HIP DRESSING DRY AND INTACT, C/O LEFT HIP PAIN 6/10 WITH NORCO 5/325MG PO GIVEN X 1 WITH RELIEF FELT, ALERT AND ORIENTED X 4, WORE C/PAP ALL SHIFT, DENIES NAUSEA, SAT IN CHAIR AT BEDGINNING OF SHIFT AND TOLERATED ACTIVITY WELL, BED LOW POSITION, CALL LIGHT AT SIDE.
[2019-01-28 04:54] LABS: Hemoglobin 10.2 g/dL (13.5-17.5)
[2019-01-28 05:23] LABS: Albumin, Blood 2.5 g/dL (3.4-5.0); Anion Gap 7 mmol/L (6-16); Blood Urea Nitrogen 36 mg/dL (8-24); Bun/Creatinine Ratio 15.7 (12.0-20.0); CO2, Blood 25 mmol/L (21-32); Calcium, Blood 8.9 mg/dL (8.5-10.1); Chloride, Blood 108 mmol/L (98-108); Creatinine, Blood 2.29 mg/dL (0.60-1.20); Glomerular Filtration Rate 30 (60-); Glucose, Blood 122 mg/dL (70-99); Magnesium, Blood 1.7 mg/dL (1.6-2.4); Phosphorus, Blood 3.5 mg/dL (2.5-4.9); Potassium, Blood 4.6 mmol/L (3.5-5.5); Prostate Specific Antigen 0.588 ng/mL (0.000-4.000); Sodium, Blood 140 mmol/L (136-145)
--- NOTE | 2019-01-28 18:30 | NUR ---
SHIFT SUMMARY PATIENT UP AMBULATING WITH STAFF. CURRENTLY SITTING IN A CHAIR. IV INFUSING. ABLE TO MAKE HIS NEEDS KNOWN. NOTED TO HAVE NAUSEA. REQUESTED [facility] [employer] AND CRACKERS, GIVEN. NO OTHER COMPLAINTS. WILL CONTINUE TO MONITOR FOR VOMITING OR NAUSEA.
[2019-01-29 04:59] LABS: Hematocrit 32.5 % (37.0-53.0); Hemoglobin 10.1 g/dL (13.5-17.5)
--- NOTE | 2019-01-29 05:11 | NUR ---
SHIFT SUMMARY PT PLEASANT AND COOPERATIVE. AMBULATED IN HALLS WALKING FROM HIS ROOM TO THE SCU AND BACK TO HIS ROOM AGAIN. TOLERATED WELL. WALKED W/ FWW. PT HAS CHRONIC BACK PAIN ALONG WITH PAIN TO LEFT HIP FROM RECENT HIP REPAIR. MEDICATED X 2 W/ 1 TAB 5/325 NORCO. SURGICAL DRESSING TO LEFT HIP CLEAN, DRY, AND INTACT. MARIE CATHETER IN PLACE. URINE IS RED WITH BLOOD. PT REPORTS IMPROVEMENT IN COLOR OF URINE COMPARED TO WHEN HE WAS ADMITTED. PT SLEPT OFF AND ON. NO ACUTE CHANGES THIS EVENING. WILL CONTINUE TO MONITOR.
[2019-01-29 05:34] LABS: Albumin, Blood 2.6 g/dL (3.4-5.0); Anion Gap 6 mmol/L (6-16); Blood Urea Nitrogen 30 mg/dL (8-24); CO2, Blood 25 mmol/L (21-32); Calcium, Blood 9.1 mg/dL (8.5-10.1); Chloride, Blood 108 mmol/L (98-108); Glomerular Filtration Rate 35 (60-); Glucose, Blood 111 mg/dL (70-99); Magnesium, Blood 1.7 mg/dL (1.6-2.4); Phosphorus, Blood 3.5 mg/dL (2.5-4.9); Potassium, Blood 4.8 mmol/L (3.5-5.5); Sodium, Blood 139 mmol/L (136-145)
--- NOTE | 2019-01-29 16:45 | NUR ---
PATIENT A/OX4, FORGETFUL AT TIMES. AMBULATED WITH FWW AND 1 ASSIST WITH PT AND DID THE STAIRS IN THE THERAPY ROOM. PAIN CONTROLLED WITH ALTERNATING NORCO AND TYLENOL. VSS, ON RA WITH CPAP AT [facility]. DRESSING TO L HIP REMAINS C/D/I. WBAT TO L LEG. SKIN INTACT. MARIE TO GRAVITY AND HAS CLEARED THROUGHOUT THE SHIFT. TOLERATING CARDIAC DIET. FALL PRECAUTIONS IN PLACE PER UNIT PROTOCOL. PATIENT HAS USED CALL LIGHT APPROPRIATELY THIS SHIFT. DID NOT HAVE A BOWEL MOVEMENT TODAY, MAY NEED BOWEL CARE ORDERS. NEEDS ENCOURAGEMENT TO GET OOB. AT TIMES TODAY WOULD TELL THE STAFF THAT HE IS UNABLE TO WALK, ALTHOUGH HE WALKED TODAY WITH PT AND HAS BEEN WALKING IN THE HALLS.
[2019-01-30 04:38] LABS: BASOPHILS ABSOLUTE AUTO 0.05 K/mm3 (0.00-0.23); BASOPHILS PERCENT AUTO 1 % (0-2); EOSINOPHILS ABSOLUTE AUTO 0.22 K/mm3 (0.00-0.68); EOSINOPHILS PERCENT AUTO 3 % (0-6); IMMATURE GRAN ABSOLUTE AUTO 0.07 K/mm3 (0.00-0.10); IMMATURE GRAN PERCENT AUTO 1 % (0-1); LYMPHOCYTES ABSOLUTE AUTO 1.73 K/mm3 (0.84-5.20); LYMPHOCYTES PERCENT AUTO 22 % (21-46); MONOCYTES ABSOLUTE AUTO 0.58 K/mm3 (0.16-1.47); MONOCYTES PERCENT AUTO 8 % (4-13); Mean Corpuscular HGB 27.8 pg (26.0-34.0); Mean Corpuscular HGB Conc 31.3 g/dL (31.5-36.5); NEUTROPHILS ABSOLUTE AUTO 5.06 K/mm3 (1.96-9.15); NEUTROPHILS PERCENT AUTO 66 % (41-73); Platelet Count 288 K/mm3 (150-400); RDW Coefficient Variation 12.7 % (11.7-14.2); RDW Standard Deviation 41.3 fL (35.1-46.3); White Blood Cell Count 7.71 K/mm3 (4.00-11.30)
[2019-01-30 04:39] LABS: Mean Corpuscular Volume 89 fL (80-100)
[2019-01-30 04:56] LABS: Albumin, Blood 2.6 g/dL (3.4-5.0); Anion Gap 6 mmol/L (6-16); Blood Urea Nitrogen 26 mg/dL (8-24); Bun/Creatinine Ratio 14.3 (12.0-20.0); CO2, Blood 26 mmol/L (21-32); Calcium, Blood 8.8 mg/dL (8.5-10.1); Chloride, Blood 108 mmol/L (98-108); Creatinine, Blood 1.82 mg/dL (0.60-1.20); Glomerular Filtration Rate 39 (60-); Glucose, Blood 124 mg/dL (70-99); Magnesium, Blood 1.7 mg/dL (1.6-2.4); Phosphorus, Blood 3.5 mg/dL (2.5-4.9); Potassium, Blood 5.2 mmol/L (3.5-5.5); Sodium, Blood 140 mmol/L (136-145)
--- NOTE | 2019-01-30 05:29 | NUR ---
SHIFT SUMMARY PT REPORTS THAT HE FEELS BETTER THIS EVENING. PT DID COMPLAIN OF SOME CONSTIPATION, REPORTING THAT HE HADN'T REALLY HAD A BM IN 3 DAYS. GAVE PT PRUNE JUICE. SHORTLY AFTER PT HAD MEDIUM SIZE BOWEL MOVEMENT. REPORTS THAT HE FEELS MUCH BETTER AFTER THE BOWEL MOVEMENT. PT CONTINUES TO HAVE PAIN IN BACK AND L HIP. MEDICATED W/ BOTH NORCO 5/325 1 TAB AND TYLENOL. PT WORE CPAP THIS EVENING WHILE SLEEPING. SLEPT OFF AND ON THROUGHOUT THE NIGHT. SURGICAL DRESSING TO LEFT HIP REMAINS C/D/I. VSS. OTHERWISE NO ACUTE CHANGES. WILL CONTINUE TO MONITOR AND REPORT TO DAY RN.
[2019-01-30 10:02] LABS: Percent Saturation 32.4 % (20.0-50.0)
--- NOTE | 2019-01-30 17:50 | NUR ---
NO ACUTE CHANGES THIS SHIFT. PATIENT AMBULATED IN HALLS WITH FWW AND 1 ASSIST. A/OX4, CALM AND COOPERATIVE WITH CARE. NORCO AND TYLENOL CONTROLLING PAIN. ONE TIME DOSE OF MIRAPEX GIVEN THIS EVENING FOR RESTLESS LEGS. MARIE TO GRAVITY WITH CLEAR/YELLOW U/O. VSS, CPAP AT [facility], RA WHILE AWAKE. PATIENT CALLS APPROPRIATELY FOR ASSISTANCE. PLANS TO D/C HOME TOMORROW WITH .
[2019-01-31 04:38] LABS: Hematocrit 31.3 % (37.0-53.0); Hemoglobin 9.6 g/dL (13.5-17.5)
[2019-01-31 05:05] LABS: Magnesium, Blood 1.8 mg/dL (1.6-2.4)
[2019-01-31 05:10] LABS: Albumin, Blood 2.7 g/dL (3.4-5.0); Anion Gap 7 mmol/L (6-16); Blood Urea Nitrogen 25 mg/dL (8-24); Bun/Creatinine Ratio 13.2 (12.0-20.0); CO2, Blood 26 mmol/L (21-32); Calcium, Blood 8.8 mg/dL (8.5-10.1); Chloride, Blood 107 mmol/L (98-108); Creatinine, Blood 1.89 mg/dL (0.60-1.20); Glomerular Filtration Rate 37 (60-); Glucose, Blood 170 mg/dL (70-99); Phosphorus, Blood 3.6 mg/dL (2.5-4.9); Potassium, Blood 4.8 mmol/L (3.5-5.5); Sodium, Blood 140 mmol/L (136-145)
--- NOTE | 2019-01-31 05:20 | NUR ---
SHIFT SUMMARY PT HAD UNEVENTFUL NIGHT. ONE EPISODE OF A SMALL AMOUNT OF INCONTINENT LOOSE STOOL. MARIE CATHETER REMAINS INTACT. PT COMPLAINED OF PAIN AT TIP OF PENIS WHERE MARIE WAS INSERTED. CATHETER INSERTION SITE CLEANED WELL AND TRIPLE ANTIBIOTIC OINTMENT APPLIED TO TIP OF PENIS. PT REPORTED RELIEF. DRESSING TO LEFT HIP SURGICAL SITE CLEAN, DRY, AND INTACT. PT AMBULATED WELL WITH FWW INTO RESTROOM. CONTINUES TO HAVE PAIN IN BACK AND LEFT HIP. MEDICATED PER EMAR. PT HOPEFUL TO BE DISCHARGED AND RETURN HOME TODAY. WILL CONTINUE TO MONITOR AND REPORT TO DAY RN.
--- NOTE | 2019-01-31 07:23 | NUR ---
ASSUMED CARE OF PT- BEDSIDE REPORT COMPLETED WITH NIGHT RN CHAI. PER REPORT PLAN IS FOR PT TO DISCHARGE HOME EARLY TODAY. PT IS STILL A SBA WITH ALL AMBULATION FOR SAFETY. PAIN MEDS Q4 PRN FOR PAIN, LAST MEDICATED AY 629. PT HAS NO S&S OF PAIN OR DISTRESS NOTED AT THIS TIME WILL CTM.
--- NOTE | 2019-01-31 14:30 | NUR ---
Patient is sitting on a chair and alert. Patient tells he may be going home soon. Patient voices his appreciation for spiritual care visits. Patient then talks about end times, the love of Rory and how we are to love others. Patient displays no spiritual needs but allows me to say a blessing over him as he prepares to discharge from the hospital . I pray for patient and provide companionship. I will continue to remain avlailable to patient and family.
[2019-01-31] MEDS ORDERED: METO25ER PO ×2 (17:10)
[2019-01-31] MEDS ORDERED: Avodart0.5 MG PO ×2 (17:11)
[2019-01-31] MEDS ORDERED: CLON.1 PO ×2 (17:11)
[2019-01-31] MEDS ORDERED: HYDRA25 PO ×2 (17:12)
[2019-01-31] MEDS ORDERED: TAMS.4ER PO ×2 (17:13)
[2019-01-31 17:57] LABS: Source, Urine Catheter
[2019-01-31 18:01] LABS: Bilirubin, Urine Neg (Neg); Blood, Urine Neg (Neg); Glucose Qualitative, Urine Neg (Neg); Ketones, Urine Neg (Neg); Leukocyte Esterase, Urine Neg (Neg); Nitrite, Urine Neg (Neg); Protein, Urine Neg (Neg); Urobilinogen, Urine NORM (Normal); pH, Urine 6.5 (5.0-8.0)
[2019-01-31 18:21] LABS: Appearance, Urine Clear (Clear); Color, Urine Yellow (P-Yellow)
--- NOTE | 2019-01-31 19:43 | NUR ---
DISCHARGE NOTE- PT WAS GIVEN VERBAL AND WRITTEN DISCHARGE INSTRUCTIONS AND ACKNOWLEDGED UNDERSTANDING OF THEM. PT HAD A MARIE PLACED PRIOR TO DISCHARGE D/T NOT BEING ABLE TO VOID. CHANGED TO A LEG BAG FOR PT TRAVEL HOME. PT WAS GIVEN EDUCATION ABOUT THE CATHETER CARE BOTH WRITTEN, VERBAL AND VISUAL. PT HAD NO FURTHER QUESTIONS AT THE TIME OF DISCHARGE. CARE MANAGEMENT IS ARRANGING THE UROLOGY FOLLOW UP ORDERED BY DR JUAREZ WELL THE FOLLOW UP WITH PT PCP D/T LATE HOUR UNABLE TO MAKE THESE FOLLOW UP APPOINTMENTS PRIOR TO PT DISCHARGE.
== END 2019-01-31 19:01 | disposition home health service (06) | DRG 682 ==
LOC: ER 17:12 → PCU 20:01 → MEDS 01-26 19:54
PROVIDERS: Internal Medicine; Internal Medicine Nephrology; Physician Assistant; ADMIT Internal Medicine
DX: N17.0 Acute kidney failure with tubular necrosis (principal); G92 Toxic encephalopathy; E87.2 Acidosis; I69.351 Hemiplegia and hemiparesis following cerebral infarction affecting right dominant side; T83.83XA Hemorrhage due to genitourinary prosthetic devices, implants and grafts, initial encounter; I25.10 Atherosclerotic heart disease of native coronary artery without angina pectoris; Z79.82 Long term (current) use of aspirin; G25.81 Restless legs syndrome; I25.2 Old myocardial infarction; E78.5 Hyperlipidemia, unspecified; E86.0 Dehydration; E87.5 Hyperkalemia; E86.9 Volume depletion, unspecified; R31.9 Hematuria, unspecified; N18.3 Chronic kidney disease, stage 3 (moderate); I12.9 Hypertensive chronic kidney disease with stage 1 through stage 4 chronic kidney disease, or unspecified chronic kidney disease
CPT/HCPCS: 36415; 36600; 51701; 51702; 70450; 71046; 73502; 76770; 80048; 80053; 80069; 81001; 81003; 82728; 82803; 82947; 83540; 83550; 83735; 84153; 84484; 85014; 85018; 85025; 85027; 87086; 93005; 93010; 94644; 94660; 94762; 96361-59; 96372-59; 96374-59; 96375-59; 97110; 97116; 97162; 97166; 97530; 97535; 99285-25; A9270; A9270-GY; G0103; J0610; J0881; J1644; J1650; J1815; J2310; J2405; J7030; J7799

== ENCOUNTER → 2019-02-07 | Outpatient (CLI) | payer MEDICARE ==
[~2019-02-07] MED LIST changes: +ACET500 PO; +Avodart0.5 MG PO; +CLON.1 PO; +DULO60 PO; +Florastor250 MG PO; +HYDRA25 PO; +LEVOFLOXACIN750 MG PO; +METO50ER PO; +TAMS.4ER PO
[2019-02-08 16:11] LABS: Protein, Urine Quantitative 40.3 mg/dL (0.0-11.9)
[2019-02-08 16:14] LABS: Microalbumin, Urine Quant. 91.6 mg/L (0.000-20.000)
== END | disposition home or self-care (01) ==
LOC: LAB SHORT 16:00 → LAB 16:00
PROVIDERS: Internal Medicine Nephrology
DX: N18.3 Chronic kidney disease, stage 3 (moderate) (principal); D63.1 Anemia in chronic kidney disease; R76.9 Abnormal immunological finding in serum, unspecified; R94.5 Abnormal results of liver function studies; R94.6 Abnormal results of thyroid function studies; D51.8 Other vitamin B12 deficiency anemias; D52.8 Other folate deficiency anemias; D59.9 Acquired hemolytic anemia, unspecified
CPT/HCPCS: 81050; 82043; 82570; 84156

== ENCOUNTER 2019-02-12 18:53 | Inpatient (IN) | payer MEDICARE ==
[~2019-02-12] VITALS: Ht 180.3 cm; Wt 104.2 kg
[~2019-02-12 18:53] MED LIST changes: -Florastor250 MG PO; -LEVOFLOXACIN750 MG PO
[2019-02-12 19:26] LABS: Source, Urine Catheter
[2019-02-12 19:31] LABS: BASOPHILS ABSOLUTE AUTO 0.05 K/mm3 (0.00-0.23); BASOPHILS PERCENT AUTO 0 % (0-2); EOSINOPHILS ABSOLUTE AUTO 0.01 K/mm3 (0.00-0.68); EOSINOPHILS PERCENT AUTO 0 % (0-6); Hematocrit 38.9 % (37.0-53.0); Hemoglobin 12.1 g/dL (13.5-17.5); IMMATURE GRAN ABSOLUTE AUTO 0.03 K/mm3 (0.00-0.10); IMMATURE GRAN PERCENT AUTO 0 % (0-1); LYMPHOCYTES PERCENT AUTO 11 % (21-46); MONOCYTES ABSOLUTE AUTO 1.11 K/mm3 (0.16-1.47); MONOCYTES PERCENT AUTO 8 % (4-13); Mean Corpuscular HGB 27.6 pg (26.0-34.0); Mean Corpuscular HGB Conc 31.1 g/dL (31.5-36.5); NEUTROPHILS ABSOLUTE AUTO 10.94 K/mm3 (1.96-9.15); NEUTROPHILS PERCENT AUTO 80 % (41-73); Platelet Count 261 K/mm3 (150-400); RDW Coefficient Variation 13.9 % (11.7-14.2); RDW Standard Deviation 44.9 fL (35.1-46.3); Red Blood Cell Count 4.38 M/mm3 (4.30-5.90); White Blood Cell Count 13.64 K/mm3 (4.00-11.30)
[2019-02-12 19:33] LABS: Mean Corpuscular Volume 89 fL (80-100)
[2019-02-12 19:33] LABS: Bilirubin, Urine Neg (Neg); Blood, Urine 2+ (Neg); Glucose Qualitative, Urine Neg (Neg); Ketones, Urine Neg (Neg); Leukocyte Esterase, Urine 3+ (Neg); Nitrite, Urine Neg (Neg); Protein, Urine 3+ (Neg); Urobilinogen, Urine NORM (Normal)
[2019-02-12 19:42] LABS: Appearance, Urine Cloudy (Clear); Color, Urine Yellow (P-Yellow)
[2019-02-12 19:45] LABS: Bacteria Many /hpf; Squamous Epithelial Cells Not Seen /hpf (Few)
[2019-02-12 19:52] LABS: Alanine Aminotransfer (ALT/SGP 12 U/L (12-78); Albumin, Blood 3.2 g/dL (3.4-5.0); Albumin/Globulin Ratio 0.8 (0.8-1.8); Alk Phos 178 U/L (50-136); Anion Gap 9 mmol/L (6-16); Aspartate Aminotrans (AST/SGOT 8 U/L (12-37); Bilirubin, Total 1.1 mg/dL (0.1-1.0); Blood Urea Nitrogen 32 mg/dL (8-24); Bun/Creatinine Ratio 16.8 (12.0-20.0); CO2, Blood 23 mmol/L (21-32); Calcium, Blood 9.2 mg/dL (8.5-10.1); Chloride, Blood 100 mmol/L (98-108); Creatinine, Blood 1.91 mg/dL (0.60-1.20); Globulin, Blood 4.1 g/dL (2.2-4.0); Glomerular Filtration Rate 37 (60-); Glucose, Blood 162 mg/dL (70-99); Potassium, Blood 4.3 mmol/L (3.5-5.5); Sodium, Blood 132 mmol/L (136-145); Total Protein, Blood 7.3 g/dL (6.4-8.2); Troponin I <0.015 ng/mL (0.000-0.040)
[2019-02-12 19:58] LABS: Amorphous Light ({null, 0-Heavy}); Mucus Light ({null, 0-Heavy})
[2019-02-12 23:30] LABS: Adenovirus F 40/41 Not Detected (NOT DETECT); Astrovirus Not Detected (NOT DETECT); Campylobacter Sp Not Detected (NOT DETECT); Cryptosporidium Not Detected (NOT DETECT); Cyclospora Cayetanensis Not Detected (NOT DETECT); E. Coli O157 Not Detected (NOT DETECT); Entamoeba Histolytica Not Detected (NOT DETECT); Enteroaggregative E. coli-EAEC Not Detected (NOT DETECT); Enteropathogenic E. coli-EPEC Not Detected (NOT DETECT); Enterotoxigenic E. coli-ETEC Not Detected (NOT DETECT); Giardia Lamblia Not Detected (NOT DETECT); Norovirus GI/GII Not Detected (NOT DETECT); Plesiomonas Shigelloides Not Detected (NOT DETECT); Rotavirus A Not Detected (NOT DETECT); Salmonella Sp Not Detected (NOT DETECT); Sapovirus Not Detected (NOT DETECT); Shiga Toxin-prod E. coli-STEC Not Detected (NOT DETECT); Shigella/Enteroin E. coli-EIEC Not Detected (NOT DETECT); Vibrio Cholerae Not Detected (NOT DETECT); Vibrio Sp Not Detected (NOT DETECT); Yersinia Enterocolitica Not Detected (NOT DETECT)
--- NOTE | 2019-02-13 03:56 | NUR ---
ASSUMED CARE APPROXIMATELY 2300; PT A&O; PT TRANSFERED SELF TO BED FROM ER BED; SPOUSE AT BEDSIDE; PT C/O SEVERE PAIN IN L HIP; REPOSITIONED AND MEDICATED PER EMAR; PT STATES HE HAS HAD 7 VERY LOOSE STOOLS TODAY AND C/O NAUSEA EARLIER IN THE DAY; PT DENIES CHEST PAIN; IV IN L AC; ARM BOARD AND PILLOW PLACED FOR INFUSION; NS RUNNING; PT ON CLEAR LIQUID DIET; PT SLEPT SEVERAL HOURS BETWEEN INTERVENTIONS; CALL LIGHT IN REACH; BED IN LOWEST POSITION; WILL CONTINUE TO MONITOR AND ASSESS UNTIL HAND OFF TO DAY SHIFT RN.
[2019-02-13 04:36] LABS: BASOPHILS ABSOLUTE AUTO 0.03 K/mm3 (0.00-0.23); BASOPHILS PERCENT AUTO 0 % (0-2); EOSINOPHILS ABSOLUTE AUTO 0.03 K/mm3 (0.00-0.68); EOSINOPHILS PERCENT AUTO 0 % (0-6); Hematocrit 32.7 % (37.0-53.0); Hemoglobin 10.3 g/dL (13.5-17.5); IMMATURE GRAN ABSOLUTE AUTO 0.05 K/mm3 (0.00-0.10); IMMATURE GRAN PERCENT AUTO 0 % (0-1); LYMPHOCYTES ABSOLUTE AUTO 1.92 K/mm3 (0.84-5.20); LYMPHOCYTES PERCENT AUTO 17 % (21-46); MONOCYTES ABSOLUTE AUTO 1.14 K/mm3 (0.16-1.47); MONOCYTES PERCENT AUTO 10 % (4-13); Mean Corpuscular HGB 27.8 pg (26.0-34.0); Mean Corpuscular HGB Conc 31.5 g/dL (31.5-36.5); Mean Corpuscular Volume 88 fL (80-100); Mean Platelet Volume 9.3 fL (9.1-12.4); NEUTROPHILS PERCENT AUTO 72 % (41-73); Platelet Count 189 K/mm3 (150-400); RDW Coefficient Variation 13.7 % (11.7-14.2); White Blood Cell Count 11.37 K/mm3 (4.00-11.30)
[2019-02-13 04:57] LABS: Albumin, Blood 2.7 g/dL (3.4-5.0); Albumin/Globulin Ratio 0.8 (0.8-1.8); Bilirubin, Total 0.9 mg/dL (0.1-1.0); Bun/Creatinine Ratio 17.4 (12.0-20.0); Calcium, Blood 8.4 mg/dL (8.5-10.1); Creatinine, Blood 1.72 mg/dL (0.60-1.20); Globulin, Blood 3.4 g/dL (2.2-4.0); Potassium, Blood 4.4 mmol/L (3.5-5.5); Total Protein, Blood 6.1 g/dL (6.4-8.2)
--- NOTE | 2019-02-13 09:12 | NUR ---
AM NOTE. ASSUMED CARE OF PT APROX 0700, PT IS A&Ox4 AND WAS ADMITTED FOR SEPSIS. PT HAS CHRONIC MARIE D/T RETENTION. PT'S VS STABLE AT THIS TIME. PT IS IN NSR IN THE 70'S-90'S. NO EDEMA NOTED ON ASSESSMENT. L/S CLEAR AND DIM IN THE BASES, PT IS ON RA WIHT O2 SATS >95%. PT IS AFIBRILE. PT DENIES ANY CHEST PAIN/PRESSURE N/V OR SOB. WILL CONTINUE TO MONITOR.
[2019-02-13 10:37] LABS: Source, Urine Catheter
[2019-02-13 10:45] LABS: Appearance, Urine Clear (Clear); Bilirubin, Urine Neg (Neg); Blood, Urine Neg (Neg); Color, Urine Yellow (P-Yellow); Glucose Qualitative, Urine Neg (Neg); Ketones, Urine Neg (Neg); Leukocyte Esterase, Urine 2+ (Neg); Nitrite, Urine Neg (Neg); Protein, Urine 1+ (Neg); Specific Gravity, Urine 1.015 (1.003-1.022); Urobilinogen, Urine NORM (Normal)
[2019-02-13 10:53] LABS: Bacteria Mod /hpf; Red Blood Cells, Urine 0-2 /hpf (0-2); Squamous Epithelial Cells Not Seen /hpf (Few)
--- NOTE | 2019-02-13 18:04 | NUR ---
SHIFT SUMMARY. NO ACUTE CHANGES NOTED THIS SHIFT. PT'S VS HAVE BEEN STABLE. PT WAS GIVEN BEDBATH AND GOTTEN UP TO RECLINER CHAIR BY THIS RN, PT IS 1P W/FWW AND GAITBELT. PT WAS GIVEN IMMODIUM FOR DIARRHEA, THIS HAS HELPED AND PT HAS NOT HAD ANY MORE EPISODES OF DIARRHEA AT THIS TIME. PT'S WAS AT THE BEDSIDE FOR SEVERAL HOURS THIS SHIFT. THE WAS UPDATED ON THE PT'S CONDITION AND PLAN OF CARE. CALL LIGHT IN REACH, BED IS LOCKED AND LOW WILL CONTINUE TO MONITOR UNTIL REPORT IS GIVEN TO ONCOMING RN.
[2019-02-14 04:16] LABS: BASOPHILS ABSOLUTE AUTO 0.05 K/mm3 (0.00-0.23); BASOPHILS PERCENT AUTO 1 % (0-2); EOSINOPHILS ABSOLUTE AUTO 0.15 K/mm3 (0.00-0.68); EOSINOPHILS PERCENT AUTO 2 % (0-6); Hematocrit 32.3 % (37.0-53.0); Hemoglobin 10.1 g/dL (13.5-17.5); IMMATURE GRAN ABSOLUTE AUTO 0.01 K/mm3 (0.00-0.10); IMMATURE GRAN PERCENT AUTO 0 % (0-1); LYMPHOCYTES ABSOLUTE AUTO 1.83 K/mm3 (0.84-5.20); LYMPHOCYTES PERCENT AUTO 26 % (21-46); MONOCYTES ABSOLUTE AUTO 0.72 K/mm3 (0.16-1.47); MONOCYTES PERCENT AUTO 10 % (4-13); Mean Corpuscular HGB 28.4 pg (26.0-34.0); Mean Corpuscular HGB Conc 31.3 g/dL (31.5-36.5); Mean Corpuscular Volume 91 fL (80-100); NEUTROPHILS ABSOLUTE AUTO 4.35 K/mm3 (1.96-9.15); NEUTROPHILS PERCENT AUTO 61 % (41-73); Platelet Count 212 K/mm3 (150-400); RDW Coefficient Variation 13.8 % (11.7-14.2); RDW Standard Deviation 45.9 fL (35.1-46.3); Red Blood Cell Count 3.56 M/mm3 (4.30-5.90); White Blood Cell Count 7.11 K/mm3 (4.00-11.30)
[2019-02-14 04:30] LABS: Albumin, Blood 2.6 g/dL (3.4-5.0); Anion Gap 6 mmol/L (6-16); Blood Urea Nitrogen 23 mg/dL (8-24); Bun/Creatinine Ratio 15.2 (12.0-20.0); CO2, Blood 24 mmol/L (21-32); Calcium, Blood 8.6 mg/dL (8.5-10.1); Chloride, Blood 109 mmol/L (98-108); Creatinine, Blood 1.51 mg/dL (0.60-1.20); Glomerular Filtration Rate 48 (60-); Glucose, Blood 124 mg/dL (70-99); Potassium, Blood 3.9 mmol/L (3.5-5.5); Sodium, Blood 139 mmol/L (136-145)
--- NOTE | 2019-02-14 05:42 | NUR ---
SHIFT SUMMARY PT HAS REMAINED AOX4 THROUGHOUT SHIFT. VSS. PLEASANT AND COOPERATIVE WITH CARE. PT HAS RESTED WELL THROUGHOUT THE NIGHT. MEDICATED MULTIPLE TIMES FOR PAIN TO HIP THAT DECREASES WITH ORDERED MEDICATION. PT CONTINUES TO ASSIST WITH TURNING IN BED, THOUGHT DOES REQUIRE ENCOURAGEMENT TO MOBILIZE HIMSELF ON OCCASION. ONE EPISODE OF INCONTINENT STOOL WHEN PATIENT THOUGHT HE WAS PASSING GAS. MARIE REMAINS PATENT AND DRAINING TO GRAVITY. URINE IS NOTED TO BE YELLOW WITH CLOUDINESS OR SEDIMENT. NO OTHER CHANGES NOTED FROM INITIAL ASSESSMENT. BED IN LOWEST POSITION,CALL LIGHT IN REACH.
--- NOTE | 2019-02-14 07:30 | NUR ---
AM NOTE. ASSUMED CARE OF PT APROX 0700. PT IS A&Ox4 AND WAS ADMITTED FOR SEPSIS. PT HAS CHRONIC MARIE PLACED IN 01/03. UA DONE SHOWS POSSIBLE UTI AWAITING CULTURE RESULTS. PT'S VS HAVE BEEN STABLE. PT IS IN NSR IN THE 70'S-80'S PER MONITOR. TRACE EDEMA IS NOTED TO THE PT'S BLE AND ANKLES.L/S CLEAR PT IS ON RA WIHT O2 SATS >95. BT PRESENT AND HYPOACTIVE, ABD IS SOFT BUT SLIGHTLY TENDER TO PALP. WILL CONTINUE TO MONITOR.
--- NOTE | 2019-02-14 18:20 | NUR ---
SHIFT SUMMARY. NO ACUTE NEGATIVE CHANGES NOTED THIS SHIFT. PT'S VS STABLE, PT WAS UP IN THE CHAIR AND WORKED WITH PT/OT TODAY. PT WILL MOST LIKELY D/C HOME TOMORROW. PT'S MARIE IS PATENT AND DRAINING TO GRAVITY. PT DID NOT HAVE ANY DIARRHEA TODAY. PT WAS MEDICATED FOR PAIN x2 PER EMAR TODAY. PT DENIES ANY CHEST PAIN/PRESSURE, N/V OR SOB. CALL LIGHT IN REACH, BED IS LOCKED AND LOW WILL CONTINUE TO MONITOR UNTIL REPORT IS GIVEN TO ONCOMING RN.
--- NOTE | 2019-02-15 00:26 | NUR ---
PROVIDER CONTACTED PT WITH ELEVATED BLOOD PRESSURE THAT HAS STEADILY INCREASED THROUGHOUT THE DAY, PT IS ASYMPTOMATIC. HOME BP MEDS TO BE RESTARTED IN AM. DR MILLER CONTACTED AND ORDERS RECEIVED FOR HYDRALAZINE PRN FOR SBP >160, SEE ORDERS. WILL INPUT AND ADMINISTER.
[2019-02-15 04:28] LABS: Albumin, Blood 2.8 g/dL (3.4-5.0); Anion Gap 6 mmol/L (6-16); Blood Urea Nitrogen 19 mg/dL (8-24); Bun/Creatinine Ratio 12.2 (12.0-20.0); CO2, Blood 24 mmol/L (21-32); Calcium, Blood 8.9 mg/dL (8.5-10.1); Chloride, Blood 109 mmol/L (98-108); Creatinine, Blood 1.56 mg/dL (0.60-1.20); Glomerular Filtration Rate 46 (60-); Glucose, Blood 121 mg/dL (70-99); Phosphorus, Blood 2.6 mg/dL (2.5-4.9); Potassium, Blood 4.3 mmol/L (3.5-5.5); Sodium, Blood 139 mmol/L (136-145)
--- NOTE | 2019-02-15 06:27 | NUR ---
SHIFT SUMMARY PT HAS REMAINED AOX4 THROUGHOUT SHIFT. VSS. PLEASANT AND COOPERATIVE WITH CARE. PT HAS RESTED THROUGHOUT MUCH OF THE NIGHT, WAKING EASILY FOR CARE AND CALLING APPROPRIATELY FOR NEEDS. PT MEDICATED ONCE WITH PRN HYDRALAZINE FOR ELEVATED BP THAT DECREASED WITH MEDS. PT TO RESTART METOPROLOL THIS AM FOR BP CONTROL. PT WAS ASYMPTOMATIC WITH ELEVATED BP. O2 SATS HAVE REMAINED >90% ON RA. MEDICATED ONCE FOR PAIN THAT DECREASED WITH ORDERED MEDICATIONS. NO OTHER CHANGES NOTED FROM INITIAL ASSESSMENT. WILL CONTINUE TO MONITOR AND REPORT TO ONCOMING SHIFT RN. BED IN LOW POSITION, CALL LIGHT IN REACH.
--- NOTE | 2019-02-15 08:45 | NUR ---
AM NOTE. ASSUMED CARE OF PT APROX 0700. PT IS A&Ox4 AND WAS ADMITTED FOR SEPSIS [facility] D/T CHRONIC MARIE CATH. PT IS HYPERTENSIVE THIS MORNING WITH BP OF 185/103. PT MEDICATED PER EMAR, WILL CONTINUE TO MONITOR. PT IS SYMPTOMATIC AT THIS TIME WITH HEADACHE AND FEELING NAUSEA. PT MEDICATED FOR NAUSEA PER EMAR. PT'S OTHER VS STABLE AT THIS TIME. CALL LIGHT IN REACH, WILL CONTINUE TO MONITOR.
[2019-02-15] MEDS ORDERED: Florastor250 MG PO (14:13)
[2019-02-15] MEDS ORDERED: LEVOFLOXACIN750 MG PO (14:14)
--- NOTE | 2019-02-15 14:54 | NUR ---
PT D/C HOME. PT D/C'D HOME WITH . MEDICATIONS WERE FAXED TO PT'S PHARMACY OF CHOICE. DISCHARGE EDUCATION WAS PROVIDED TO PT AND . MEDICATION EDUCATION PROVIDED WELL. IV WAS REMOVED WNL. ALL OF PT'S BELONGINGS PACKED AND D/C'D W/PT.
== END 2019-02-15 14:55 | disposition home or self-care (01) | DRG 698 ==
LOC: ER 18:53 → PCU 22:05
PROVIDERS: Emergency Medicine; Family Medicine; Nurse Practitioner Acute Care; ADMIT Internal Medicine
DX: T83.511A Infection and inflammatory reaction due to indwelling urethral catheter, initial encounter (principal); A41.9 Sepsis, unspecified organism; R65.20 Severe sepsis without septic shock; N17.9 Acute kidney failure, unspecified; N39.0 Urinary tract infection, site not specified; N18.3 Chronic kidney disease, stage 3 (moderate); I25.10 Atherosclerotic heart disease of native coronary artery without angina pectoris; I12.9 Hypertensive chronic kidney disease with stage 1 through stage 4 chronic kidney disease, or unspecified chronic kidney disease; D63.1 Anemia in chronic kidney disease; G47.33 Obstructive sleep apnea (adult) (pediatric); E78.5 Hyperlipidemia, unspecified; E86.0 Dehydration; E87.5 Hyperkalemia; I95.9 Hypotension, unspecified; Z86.73 Personal history of transient ischemic attack (TIA), and cerebral infarction without residual deficits; Z95.5 Presence of coronary angioplasty implant and graft; Z88.5 Allergy status to narcotic agent; Z88.0 Allergy status to penicillin; Z88.2 Allergy status to sulfonamides; Z79.82 Long term (current) use of aspirin; Z79.899 Other long term (current) drug therapy
CPT/HCPCS: 0097U; 36415; 51702; 71046; 80053; 80069; 81001; 83605; 83880; 84100; 84484; 85025; 87040; 87077; 87086; 87186; 93005; 93010; 96361-59; 96374-59; 96375-59; 97162; 97165; 97530; 99285-25; A9270; J0360; J0696; J1644; J2405; J3010; J7030; J7120

== ENCOUNTER → 2019-03-13 | Outpatient (CLI) | payer MEDICARE ==
[~2019-03-13] MED LIST changes: +Florastor250 MG PO; +LEVOFLOXACIN750 MG PO
[2019-03-14 12:45] LABS: Creatinine Urine 64.8 mg/dL (27.00-270.00)
== END | disposition home or self-care (01) ==
LOC: LAB SHORT 16:00 → LAB 16:00
PROVIDERS: Internal Medicine Nephrology
DX: E55.9 Vitamin D deficiency, unspecified (principal); N18.3 Chronic kidney disease, stage 3 (moderate); D63.1 Anemia in chronic kidney disease; N25.81 Secondary hyperparathyroidism of renal origin; E78.00 Pure hypercholesterolemia, unspecified; R76.9 Abnormal immunological finding in serum, unspecified; R94.5 Abnormal results of liver function studies; R94.6 Abnormal results of thyroid function studies
CPT/HCPCS: 81050; 82570

== ENCOUNTER → 2019-10-05 | Outpatient (CLI) | payer MEDICARE | END | disposition home or self-care (01) | LOC: LAB SHORT 20:11 → LAB 20:11 | DX: N39.0 Urinary tract infection, site not specified (principal) | CPT/HCPCS: 87086; 87106 ==

== ENCOUNTER → 2020-01-19 | Outpatient (CLI) | payer MEDICARE | END | disposition home or self-care (01) | LOC: LAB SHORT 17:34 → LAB 17:34 | DX: R82.998 Other abnormal findings in urine (principal) | CPT/HCPCS: 87086 ==

== ENCOUNTER → 2020-02-09 | Outpatient (CLI) | payer MEDICARE | END | disposition home or self-care (01) | LOC: LAB SHORT 11:30 → LAB 11:30 | DX: R30.1 Vesical tenesmus (principal); R39.82 Chronic bladder pain | CPT/HCPCS: 87086; 87106 ==

== ENCOUNTER → 2020-03-20 | Outpatient (CLI) | payer MEDICARE ==
[~2020-03-20] MED LIST changes: +KEFLEX500 MG PO; +PROM25 PO; +Percocet 5-3251 EACH PO; +Pyridium200 MG PO; +Ropinirole HCl2 MG PO
== END | disposition home or self-care (01) ==
LOC: LAB SHORT 19:26 → LAB 19:26
DX: R39.11 Hesitancy of micturition (principal); R82.998 Other abnormal findings in urine
CPT/HCPCS: 87086

== ENCOUNTER 2020-04-12 05:26 | Emergency (ER) | payer MEDICARE ==
[~2020-04-12] VITALS: Ht 177.8 cm; Wt 93.4 kg
[~2020-04-12 05:26] MED LIST changes: -KEFLEX500 MG PO; -PROM25 PO; -Percocet 5-3251 EACH PO; -Pyridium200 MG PO; -Ropinirole HCl2 MG PO
[2020-04-12 07:29] LABS: BASOPHILS ABSOLUTE AUTO 0.11 K/mm3 (0.00-0.23); BASOPHILS PERCENT AUTO 1 % (0-2); EOSINOPHILS ABSOLUTE AUTO 0.07 K/mm3 (0.00-0.68); EOSINOPHILS PERCENT AUTO 1 % (0-6); Hematocrit 38.8 % (37.0-53.0); Hemoglobin 12.3 g/dL (13.5-17.5); IMMATURE GRAN ABSOLUTE AUTO 0.02 K/mm3 (0.00-0.10); IMMATURE GRAN PERCENT AUTO 0 % (0-1); LYMPHOCYTES ABSOLUTE AUTO 1.85 K/mm3 (0.84-5.20); LYMPHOCYTES PERCENT AUTO 23 % (21-46); MONOCYTES ABSOLUTE AUTO 0.63 K/mm3 (0.16-1.47); MONOCYTES PERCENT AUTO 8 % (4-13); Mean Corpuscular HGB 27.5 pg (26.0-34.0); Mean Corpuscular HGB Conc 31.7 g/dL (31.5-36.5); Mean Corpuscular Volume 87 fL (80-100); Mean Platelet Volume 8.7 fL (9.1-12.4); NEUTROPHILS ABSOLUTE AUTO 5.25 K/mm3 (1.96-9.15); NEUTROPHILS PERCENT AUTO 66 % (41-73); Platelet Count 316 K/mm3 (150-400); RDW Coefficient Variation 14.3 % (11.7-14.2); RDW Standard Deviation 45.5 fL (35.1-46.3); Red Blood Cell Count 4.47 M/mm3 (4.30-5.90); White Blood Cell Count 7.93 K/mm3 (4.00-11.30)
[2020-04-12 08:02] LABS: Albumin, Blood 3.4 g/dL (3.4-5.0); Albumin/Globulin Ratio 0.8 (0.8-1.8); Bilirubin, Total 0.4 mg/dL (0.1-1.0); Bun/Creatinine Ratio 8.6 (12.0-20.0); Calcium, Blood 9.4 mg/dL (8.5-10.1); Creatinine, Blood 3.04 mg/dL (0.60-1.20); Globulin, Blood 4.2 g/dL (2.2-4.0); Potassium, Blood 4.1 mmol/L (3.5-5.5); Total Protein, Blood 7.6 g/dL (6.4-8.2)
[2020-04-12 08:31] LABS: Source, Urine Catheter
[2020-04-12 08:35] LABS: Bilirubin, Urine Neg (Neg); Blood, Urine 4+ (Neg); Glucose Qualitative, Urine Neg (Neg); Ketones, Urine Neg (Neg); Leukocyte Esterase, Urine 3+ (Neg); Nitrite, Urine Neg (Neg); Protein, Urine 3+ (Neg); Urobilinogen, Urine NORM (Normal)
[2020-04-12 08:42] LABS: Appearance, Urine Hazy (Clear); Color, Urine Yellow (P-Yellow)
[2020-04-12 08:45] LABS: Squamous Epithelial Cells Not Seen /hpf (Few); White Blood Cells, Urine TNTC /hpf (0-5)
[2020-04-12 08:46] LABS: Bacteria Mod /hpf; Yeast/Fungi Urine Few /hpf
[2020-04-12] MEDS ORDERED: PROM25 PO (10:04)
[2020-04-12] MEDS ORDERED: KEFLEX500 MG PO (10:04)
[2020-04-13] MEDS ORDERED: Pyridium200 MG PO (20:45)
[2020-04-13] MEDS ORDERED: Percocet 5-3251 EACH PO (21:35)
[2020-04-13] MEDS ORDERED: Ropinirole HCl2 MG PO (21:50)
== END 2020-04-12 11:04 | disposition home or self-care (01) ==
LOC: ER 05:26
PROVIDERS: Emergency Medicine
DX: N39.0 Urinary tract infection, site not specified (principal); I10 Essential (primary) hypertension; Z88.2 Allergy status to sulfonamides; Z88.5 Allergy status to narcotic agent; Z88.8 Allergy status to other drugs, medicaments and biological substances; Z79.82 Long term (current) use of aspirin; Z79.899 Other long term (current) drug therapy
CPT/HCPCS: 36415; 51701; 51798; 74176; 80053; 81001; 83690; 83735; 85025; 87086; 87106; 96365-59; 96375-59; 99284-25; J0696; J1170; J2405; J7030

== ENCOUNTER 2020-04-13 18:48 | Emergency (ER) | payer MEDICARE ==
[~2020-04-13] VITALS: Ht 177.8 cm; Wt 93.4 kg
[~2020-04-13 18:48] MED LIST changes: +KEFLEX500 MG PO; +PROM25 PO
[2020-04-13] MEDS ORDERED: Pyridium200 MG PO (20:45)
[2020-04-13] MEDS ORDERED: Percocet 5-3251 EACH PO (21:35)
[2020-04-13] MEDS ORDERED: Ropinirole HCl2 MG PO (21:50)
== END 2020-04-13 21:57 | disposition home or self-care (01) ==
LOC: ER 18:48
DX: N39.0 Urinary tract infection, site not specified (principal); R33.9 Retention of urine, unspecified; I10 Essential (primary) hypertension; Z88.0 Allergy status to penicillin; Z88.2 Allergy status to sulfonamides; Z88.5 Allergy status to narcotic agent; Z88.8 Allergy status to other drugs, medicaments and biological substances; Z79.82 Long term (current) use of aspirin; Z79.899 Other long term (current) drug therapy
CPT/HCPCS: 51702; 99282-25; A9270

== ENCOUNTER 2020-04-26 10:48 | Emergency (ER) | payer MEDICARE ==
[~2020-04-26] VITALS: Ht 177.8 cm; Wt 93.4 kg
[~2020-04-26 10:48] MED LIST changes: +Percocet 5-3251 EACH PO; +Pyridium200 MG PO; +Ropinirole HCl2 MG PO
[2020-04-26 11:30] LABS: BASOPHILS PERCENT AUTO 1 % (0-2); EOSINOPHILS ABSOLUTE AUTO 0.15 K/mm3 (0.00-0.68); EOSINOPHILS PERCENT AUTO 2 % (0-6); Hematocrit 40.9 % (37.0-53.0); Hemoglobin 12.9 g/dL (13.5-17.5); IMMATURE GRAN ABSOLUTE AUTO 0.02 K/mm3 (0.00-0.10); IMMATURE GRAN PERCENT AUTO 0 % (0-1); LYMPHOCYTES ABSOLUTE AUTO 1.93 K/mm3 (0.84-5.20); LYMPHOCYTES PERCENT AUTO 23 % (21-46); MONOCYTES ABSOLUTE AUTO 0.72 K/mm3 (0.16-1.47); MONOCYTES PERCENT AUTO 9 % (4-13); Mean Corpuscular HGB 28.2 pg (26.0-34.0); Mean Corpuscular HGB Conc 31.5 g/dL (31.5-36.5); Mean Corpuscular Volume 89 fL (80-100); Mean Platelet Volume 8.7 fL (9.1-12.4); NEUTROPHILS ABSOLUTE AUTO 5.51 K/mm3 (1.96-9.15); NEUTROPHILS PERCENT AUTO 65 % (41-73); Platelet Count 293 K/mm3 (150-400); RDW Coefficient Variation 13.5 % (11.7-14.2); RDW Standard Deviation 43.8 fL (35.1-46.3); Red Blood Cell Count 4.58 M/mm3 (4.30-5.90); White Blood Cell Count 8.43 K/mm3 (4.00-11.30)
[2020-04-26 11:40] LABS: Albumin, Blood 3.5 g/dL (3.4-5.0); Albumin/Globulin Ratio 0.8 (0.8-1.8); Bilirubin, Total 0.7 mg/dL (0.1-1.0); Bun/Creatinine Ratio 11.9 (12.0-20.0); Calcium, Blood 9.9 mg/dL (8.5-10.1); Creatinine, Blood 2.61 mg/dL (0.60-1.20); Globulin, Blood 4.5 g/dL (2.2-4.0); Potassium, Blood 4.7 mmol/L (3.5-5.5)
[2020-04-26 12:14] LABS: Source, Urine Clean Catch
[2020-04-26 12:22] LABS: Appearance, Urine Cloudy (Clear); Bilirubin, Urine Neg (Neg); Blood, Urine 5+ (Neg); Color, Urine Yellow (P-Yellow); Glucose Qualitative, Urine Neg (Neg); Ketones, Urine 1+ (Neg); Leukocyte Esterase, Urine 3+ (Neg); Nitrite, Urine Neg (Neg); Protein, Urine 3+ (Neg); Urobilinogen, Urine NORM (Normal)
[2020-04-26 12:47] LABS: Red Blood Cells, Urine 25-50 /hpf (0-2); White Blood Cells, Urine TNTC /hpf (0-5)
[2020-04-26 12:48] LABS: Bacteria Many /hpf; Squamous Epithelial Cells Rare /hpf (Few)
[2020-04-26] MEDS ORDERED: Percocet 5-3251 EACH PO (13:54)
[2020-04-26] MEDS ORDERED: ONDA4ODT SL (13:56)
== END 2020-04-26 14:23 | disposition home or self-care (01) ==
LOC: ER 10:48
PROVIDERS: Emergency Medicine
DX: R10.2 Pelvic and perineal pain (principal); R30.0 Dysuria; R11.2 Nausea with vomiting, unspecified; I10 Essential (primary) hypertension; Z79.82 Long term (current) use of aspirin; Z79.899 Other long term (current) drug therapy; Z88.0 Allergy status to penicillin; Z88.2 Allergy status to sulfonamides; Z88.8 Allergy status to other drugs, medicaments and biological substances; Z88.5 Allergy status to narcotic agent
CPT/HCPCS: 36415; 51702; 80053; 81001; 85025; 87086; 87106; 96361-59; 96374-59; 96375-59; 96376-59; 99283-25; J1170; J2405; J7030

== ENCOUNTER 2020-08-31 11:39 | Inpatient (IN) | payer MEDICARE ==
[~2020-08-31] VITALS: Ht 177.8 cm; Wt 75.1 kg
[~2020-08-31 11:39] MED LIST changes: -Avodart0.5 MG PO; +ONDA4ODT SL; -TAMS.4ER PO
[2020-08-31 12:24] LABS: BASOPHILS ABSOLUTE AUTO 0.16 K/mm3 (0.00-0.23); BASOPHILS PERCENT AUTO 1 % (0-2); EOSINOPHILS ABSOLUTE AUTO 0.08 K/mm3 (0.00-0.68); EOSINOPHILS PERCENT AUTO 0 % (0-6); Hemoglobin 14.1 g/dL (13.5-17.5); IMMATURE GRAN ABSOLUTE AUTO 0.18 K/mm3 (0.00-0.10); IMMATURE GRAN PERCENT AUTO 1 % (0-1); LYMPHOCYTES ABSOLUTE AUTO 4.56 K/mm3 (0.84-5.20); LYMPHOCYTES PERCENT AUTO 23 % (21-46); MONOCYTES ABSOLUTE AUTO 0.99 K/mm3 (0.16-1.47); MONOCYTES PERCENT AUTO 5 % (4-13); Mean Corpuscular HGB 27.6 pg (26.0-34.0); Mean Corpuscular HGB Conc 32.8 g/dL (31.5-36.5); Mean Corpuscular Volume 84 fL (80-100); Mean Platelet Volume 8.4 fL (9.1-12.4); NEUTROPHILS ABSOLUTE AUTO 13.59 K/mm3 (1.96-9.15); NEUTROPHILS PERCENT AUTO 70 % (41-73); Platelet Count 614 K/mm3 (150-400); RDW Coefficient Variation 13.4 % (11.7-14.2); RDW Standard Deviation 41.4 fL (35.1-46.3); Red Blood Cell Count 5.11 M/mm3 (4.30-5.90); White Blood Cell Count 19.56 K/mm3 (4.00-11.30)
[2020-08-31 12:49] LABS: Alanine Aminotransfer (ALT/SGP 11 U/L (12-78); Albumin, Blood 3.4 g/dL (3.4-5.0); Albumin/Globulin Ratio 0.6 (0.8-1.8); Alk Phos 125 U/L (50-136); Anion Gap 13 mmol/L (6-16); Aspartate Aminotrans (AST/SGOT 16 U/L (12-37); Bilirubin, Total 0.7 mg/dL (0.1-1.0); Blood Urea Nitrogen 76 mg/dL (8-24); Bun/Creatinine Ratio 16.6 (12.0-20.0); CO2, Blood 18 mmol/L (21-32); Calcium, Blood 10.1 mg/dL (8.5-10.1); Chloride, Blood 92 mmol/L (98-108); Creatinine, Blood 4.57 mg/dL (0.60-1.20); Globulin, Blood 6.1 g/dL (2.2-4.0); Glomerular Filtration Rate 13 (60-); Glucose, Blood 210 mg/dL (70-99); Potassium, Blood 4.4 mmol/L (3.5-5.5); Sodium, Blood 123 mmol/L (136-145); Total Protein, Blood 9.5 g/dL (6.4-8.2); Troponin I <0.015 ng/mL (0.000-0.040)
[2020-08-31 13:52] LABS: Source, Urine Voided
[2020-08-31 13:56] LABS: Bilirubin, Urine Neg (Neg); Blood, Urine 4+ (Neg); Glucose Qualitative, Urine Neg (Neg); Ketones, Urine Neg (Neg); Leukocyte Esterase, Urine 3+ (Neg); Nitrite, Urine Neg (Neg); Protein, Urine 3+ (Neg); Specific Gravity, Urine 1.025 (1.003-1.022); Urobilinogen, Urine NORM (Normal)
[2020-08-31 14:05] LABS: Appearance, Urine Turbid (Clear); Color, Urine Pale Yellow (P-Yellow)
[2020-08-31 14:07] LABS: White Blood Cells, Urine TNTC /hpf (0-5)
[2020-08-31 14:13] LABS: Bacteria Many /hpf; Squamous Epithelial Cells Rare /hpf (Few)
[2020-08-31 14:14] LABS: Renal Epithelial Few /hpf (0-Rare)
[2020-08-31] MEDS ORDERED: TAMS.4ER PO (15:01)
[2020-08-31] MEDS ORDERED: Avodart0.5 MG PO (15:01)
[2020-08-31] MEDS ORDERED: ROPINIROLE HCL4 M1 PO (15:02)
[2020-08-31] MEDS ORDERED: OXYC5 PO (15:03)
[2020-08-31] MEDS ORDERED: PHENA200 PO (15:06)
[2020-08-31 17:33] LABS: Thyroid Stimulating Hormone 0.918 uIU/mL (0.360-4.800)
--- NOTE | 2020-08-31 18:52 | NUR ---
PT ARRIVED TO PCU 3 VIA GURNEY FROM ED, REPORT FROM BENNY RN, PT PULLED OVER TO BED, HE IS VERY WEAK, BASELINE AMBULATOR, BUT REPORTS SICK IN BED FOR 3 WEEKS, A/OX3, TIRED APPEARING, LUNGS ARE CLEAR IN UPPER KUMARI, DIM IN BASES, RESP EVEN AND UNLABORED, ON RA, NO COUGH NOTED, HRR, TELE IN PLACE RUNNING SR PER MONITOR, SEE STRIP, 2+ EDEMA TO B/L ANKLES, PPP+1, CAP REFILL <3SEC, VS STABLE, AFEBRILE, IV SITE TO BHUMIKA, SITE IS CLEAR AND PATENT, HUNG NS AT 125 PER ORDERS, BTX4, HYPOACTIVE, ABD FLAT SOFT TENDER, HE REPORTS NO BM IN 3 WEEKS, AND HASN'T BEEN EATING, HE REPORTS VOIDING WITHOUT DIFF, SKIN C/W/D, MAEW, PROFOUND WEAKNESS, MORIAH, ORIENTED TO ROOM LAYOUT AND CALL SYSTEM, CALL LIGHT IN REACH.
[2020-08-31 19:40] LABS: Bun/Creatinine Ratio 16.4 (12.0-20.0); Creatinine, Blood 4.27 mg/dL (0.60-1.20); Potassium, Blood 4.5 mmol/L (3.5-5.5)
--- NOTE | 2020-08-31 20:05 | NUR ---
PT'S ONLY COMPLAINT IS FEELING "TIRED." PT DENIES ANY HEADACHE, CHEST PAIN, NAUSEA, SOB, PAIN, OR NUMBNESS AND TINGLING. PER DAY SHIFT RN, REPORT IS PT HASN'T HAD A BM SINCE 08/24. WILL MEDICATE PER EMAR FOR BM ASSIST TONIGHT. IV FLUIDS INFUSING WITHOUT COMPLICATIONS TO BHUMIKA IV SITE. FLUIDS AT BEDSIDE. CALL LIGHT WITHIN REACH. PT DENIES ANY REQUESTS AT THIS TIME. BED IN LOW POSITION.
[2020-08-31 22:38] LABS: Bun/Creatinine Ratio 17.2 (12.0-20.0); Calcium, Blood 8.6 mg/dL (8.5-10.1); Creatinine, Blood 4.3 mg/dL (0.60-1.20); Potassium, Blood 4.4 mmol/L (3.5-5.5)
[2020-09-01 02:38] LABS: BASOPHILS ABSOLUTE AUTO 0.07 K/mm3 (0.00-0.23); BASOPHILS PERCENT AUTO 1 % (0-2); EOSINOPHILS ABSOLUTE AUTO 0.08 K/mm3 (0.00-0.68); EOSINOPHILS PERCENT AUTO 1 % (0-6); Hematocrit 30.8 % (37.0-53.0); IMMATURE GRAN ABSOLUTE AUTO 0.04 K/mm3 (0.00-0.10); IMMATURE GRAN PERCENT AUTO 1 % (0-1); LYMPHOCYTES ABSOLUTE AUTO 1.63 K/mm3 (0.84-5.20); LYMPHOCYTES PERCENT AUTO 20 % (21-46); MONOCYTES ABSOLUTE AUTO 0.79 K/mm3 (0.16-1.47); MONOCYTES PERCENT AUTO 10 % (4-13); Mean Corpuscular HGB 27.5 pg (26.0-34.0); Mean Corpuscular HGB Conc 32.5 g/dL (31.5-36.5); Mean Corpuscular Volume 85 fL (80-100); NEUTROPHILS ABSOLUTE AUTO 5.71 K/mm3 (1.96-9.15); NEUTROPHILS PERCENT AUTO 69 % (41-73); Platelet Count 387 K/mm3 (150-400); RDW Coefficient Variation 13.5 % (11.7-14.2); RDW Standard Deviation 42.5 fL (35.1-46.3); Red Blood Cell Count 3.63 M/mm3 (4.30-5.90); White Blood Cell Count 8.32 K/mm3 (4.00-11.30)
[2020-09-01 02:57] LABS: Albumin, Blood 2.5 g/dL (3.4-5.0); Albumin/Globulin Ratio 0.7 (0.8-1.8); Bilirubin, Total 0.3 mg/dL (0.1-1.0); Bun/Creatinine Ratio 17.8 (12.0-20.0); Calcium, Blood 8.6 mg/dL (8.5-10.1); Creatinine, Blood 4.05 mg/dL (0.60-1.20); Globulin, Blood 3.8 g/dL (2.2-4.0); Potassium, Blood 4.3 mmol/L (3.5-5.5); Total Protein, Blood 6.3 g/dL (6.4-8.2)
[2020-09-01 04:20] LABS: U Amphetamine Screen Not Detected; U Barbituate Screen Not Detected; U Benzodiazapine Screen Not Detected; U Buprenorphine Screen Not Detected; U Cannabinoids Screen Not Detected; U Cocaine Screen Not Detected; U Methadone Screen Not Detected; U Methamphetamine Screen Not Detected; U Opiates Screen DETECTED; U Oxycodone Screen DETECTED; U Phencyclidine Screen Not Detected; U Propoxyphene Screen Not Detected
--- NOTE | 2020-09-01 06:15 | NUR ---
SHIFT SUMMARY - PT HAD A BM SMEAR LAST NOC. CONDOM CATH PLACED JUST PRIOR TO URINE SAMPLE BEING SENT TO LAB TONIGHT. PT'S URINE IS CLOUDY YELLOW. PT IS ABLE TO TURN HIMSELF IN BED INDEPENDENTLY. PT HAS BEEN ALERT AND ORIENTED, RESPONDING APPROPRIATELY TO QUESTIONS ASKED THROUGHOUT THE NIGHT. NO ACUTE CHANGES THROUGHOUT THIS SHIFT. BED IN LOW POSITION. CALL LIGHT WITHIN REACH. IV FLUIDS INFUSING WITHOUT COMPLICATIONS TO R UA IV SITE.
[2020-09-01 15:10] LABS: Bun/Creatinine Ratio 16.6 (12.0-20.0); Calcium, Blood 8.7 mg/dL (8.5-10.1); Creatinine, Blood 3.98 mg/dL (0.60-1.20); Potassium, Blood 4.7 mmol/L (3.5-5.5)
--- NOTE | 2020-09-01 18:16 | NUR ---
SHIFT SUMMARY PT WAS CHANGED TO MED NO TELE STATUS THIS MORNING. PT HAS BEEN STABLE, VS STABLE, ON RA. PT HAS CONDOM CATH IN PLACE WHICH IS DRAINING WELL INTO A MARIE BAG. PT'S SODIUM REMAINS LOW, HE HAS 1L NS RUNNING AT THIS TIME. PT REPORTS CHRONIC PAIN IN HIS BACK AND HAS BEEN MEDICATED PER EMAR TODAY.
--- NOTE | 2020-09-02 03:45 | NUR ---
UPDATE DR DIAZ NOTIFIED OF PATIENT'S SODIUM LEVEL YESTERDAY MORNING AND THAT THERE WERE NO LABS ORDERED FOR THIS AM. ORDER RECIEVED.
[2020-09-02 04:43] LABS: Albumin, Blood 2.3 g/dL (3.4-5.0); Anion Gap 10 mmol/L (6-16); Blood Urea Nitrogen 64 mg/dL (8-24); Bun/Creatinine Ratio 15.3 (12.0-20.0); CO2, Blood 17 mmol/L (21-32); Calcium, Blood 8.4 mg/dL (8.5-10.1); Chloride, Blood 104 mmol/L (98-108); Creatinine, Blood 4.18 mg/dL (0.60-1.20); Glomerular Filtration Rate 15 (60-); Glucose, Blood 100 mg/dL (70-99); Phosphorus, Blood 3.8 mg/dL (2.5-4.9); Potassium, Blood 4.6 mmol/L (3.5-5.5); Sodium, Blood 131 mmol/L (136-145)
--- NOTE | 2020-09-02 05:37 | NUR ---
UPDATE PATIENT GIVEN TRAMADOL AT APPROX 0417 THIS MORNING. APPROX 5-10 MINUTES AFTER TAKING PILL PATIENT HAD EMESIS. EMESIS DARK BROWN/GREEN WITH CHUNKS. RN UNABLE TO IDENTIFY IF PILL HAD BEEN THROWN UP. DR DIAZ NOTIFIED AND ORDERED AN ADDITIONAL ONE TIME DOSE OF TRAMADOL DUE TO PATIENT POSSIBLY HAVING THROWN UP PREVIOUS DOSE.
--- NOTE | 2020-09-02 07:36 | NUR ---
SHIFT SUMMARY PATIENT PLEASENT AND CHEERFUL THROUGHOUT THE NIGHT. PATIENT MEDICATED FOR PAIN PER EMAR. PATIENT DECLINED ATTEMPTS AT REPOSITIONING, EVEN AFTER EDUCATION ON SKIN BREAKDOWN PREVENTION WAS PROVIDED. PATIENT APPEARED TO SLEEP ON AND OFF THROUGHOUT THE NIGHT. VITAL SIGNS CHARTED. REPORT GIVEN TO ONCOMING RN.
[2020-09-02 09:24] LABS: Source, Urine Catheter
[2020-09-02 09:27] LABS: Bilirubin, Urine Neg (Neg); Blood, Urine 4+ (Neg); Glucose Qualitative, Urine Neg (Neg); Ketones, Urine Neg (Neg); Leukocyte Esterase, Urine 3+ (Neg); Nitrite, Urine Neg (Neg); Protein, Urine 3+ (Neg); Urobilinogen, Urine NORM (Normal); pH, Urine 6.5 (5.0-8.0)
[2020-09-02 09:43] LABS: Appearance, Urine Cloudy (Clear); Color, Urine Yellow (P-Yellow)
[2020-09-02 09:45] LABS: Bacteria Many /hpf; Red Blood Cells, Urine 0-2 /hpf (0-2); Squamous Epithelial Cells Rare /hpf (Few); White Blood Cells, Urine TNTC /hpf (0-5)
[2020-09-02 15:06] LABS: Bun/Creatinine Ratio 15.1 (12.0-20.0); Calcium, Blood 8.7 mg/dL (8.5-10.1); Creatinine, Blood 3.97 mg/dL (0.60-1.20); Potassium, Blood 4.6 mmol/L (3.5-5.5)
--- NOTE | 2020-09-02 18:18 | NUR ---
SHIFT SUMMARY PT CONTINUES TO HAVE CRANBERRY/CLOUDY URINE AND CONTINUES TO HAVE PAIN ON AND OFF. PT HAS BEEN VERY SLEEPY TODAY AND HAS HAD FREQUENTLY REPORTED HAVING REFLUX AND HEARTBURN. PT HAS BEEN MEDICATED PER EMAR THROUGHOUT THE DAY. PT HAD A CT OF ABD. AND PELVIS COMPLETED TO GET FURTHER IMAGING OF HIS KIDNEYS HAS FUNCTION HAS CONTINUED TO WORSEN. PT IS RESTING IN BED AT THIS TIME.
[2020-09-03 04:11] LABS: Bun/Creatinine Ratio 14.8 (12.0-20.0); Calcium, Blood 8.6 mg/dL (8.5-10.1); Creatinine, Blood 3.57 mg/dL (0.60-1.20); Potassium, Blood 4.3 mmol/L (3.5-5.5)
--- NOTE | 2020-09-03 06:19 | NUR ---
SHIFT SUMMARY PATIENT PLEASENT THROUGHOUT THE NIGHT. PATIENT APPEARED TO NAP ON AND OFF THROUGHOUT THE NIGHT. PATIENT MEDICATED FOR PAIN PER EMAR. PATIENT DECLINED ALL OFFERS TO REPOSITION EVEN AFTER EDUCATION ON SKIN BREAKDOWN PROVIDED. HOWEVER, PATIENT DID REPOSITION HIMSELF IN BED ON HIS OWN SEVERAL TIMES. VITAL SIGNS CHARTED. WILL CONTINUE CURRENT PLAN OF CARE AND REPORT TO ONCOMING RN.
--- NOTE | 2020-09-03 07:40 | NUR ---
REPORT GIVEN PATIENT RECEIVED ROOM ASSIGNMENT ON THE MEDICAL FLOOR. REPORT GIVEN TO SANDRINE MOTA.
--- NOTE | 2020-09-03 07:51 | NUR ---
Report recieved from [facility]
--- NOTE | 2020-09-04 04:49 | NUR ---
SUMMARY: PT A/OX4, [place] AND SPECIFIES NEEDS BUT LOSES TRACK OF TIME AND MAKES FREQ NON-ACUTE REQUESTS. HE C/O ABDO PAIN D/T POSSIBLE CONSTIPATION BUT HAS TAKEN BOWEL MEDS AND IS PASSING FLATUS. TYLENOL AND ULTRAM RECIEVED PRN FOR SOME RELIEF. IV IS SL, PO INTAKE ENCOURAGED AND MARIE IS PATENT/DRAINING, CLOUDY/MUCOUSY URINE OBSERVED W/SM.AMT CLOTS NOTED. PLAN IS TO D/C HOME W/HOME HEALTH W/[facility] F/U AN OUTPATIENT. NO ACUTE CHANGES, VSS AND AFEBRILE. WCTM AND REPORT TO DAY RN.
[2020-09-04 05:48] LABS: Bun/Creatinine Ratio 14.3 (12.0-20.0); Calcium, Blood 8.9 mg/dL (8.5-10.1); Creatinine, Blood 3.36 mg/dL (0.60-1.20); Potassium, Blood 4.6 mmol/L (3.5-5.5)
[2020-09-04] MEDS ORDERED: MIRALAX17 GM PO (12:13)
--- NOTE | 2020-09-04 13:39 | NUR ---
Spoke with viscose cellar charge hand Kendal prior to Pt visit and discussed case. Primary RN not available at this time. Plan for possible D/C today with HH. Pt resting in bed and reports 8/10 pain in his bladder. Bedside RN Jimmie in to offer pain medication. Pt denies dyspnea and anxiety at this time. Pt does appear mildly anxious as evidenced by speaking fast and constant fidgeting in bed. Pt reports being in agreement with D/C plan. Offered therapeutic listeing as Pt reports noticing a signifant decline in his health over the last 3 years and losing over 100 pounds over the last 2 years. Pt reports being screened for cancer with results being negative. Pt lives at home with his and has supportive friends and family. Pt reports his current spouse has lost 2 previous husbands to cancer and he lost his first to cancer. Pt reports at one point in the recent past he was concerned his life was going to have an untimely ending and was asking his doctors how long he had. Continued therapeutic listening and answered questions. Ended visit to allow Pt to rest. Pt expresses appreciation of visit and reports no concerns at this time. Spoke with Bedside SVETLANA Mccrary and discussed case. Pt to D/C with HH and F/U with urology as out patient. Palliative Care will remain available.
--- NOTE | 2020-09-04 15:57 | NUR ---
DISCHARGE PT DISCHARGED TO HOME WITH HOME HEALTH. THIS RN EXPLAINED DISCHARGED INSTRUCTIONS AND MEDICATIONS TO PT AND HE REPORTS HE UNDERSTANDS. THIS RN EDUCATED PT ON MARIE CATHETER AND GAVE PT INFORMATION. PT REPORTS HE HAS HAD CATHETERS IN THE PAST AND KNOW WHAT TO DO. PT TRANSFERRED TO PRIVATE VEHICLE VIA WHEELCHAIR. BELONGINGS WITH PT.
== END 2020-09-04 15:13 | disposition home health service (06) | DRG 683 ==
LOC: ER 11:39 → PCU 16:06 → MEDS 16:06 → PCU 18:21 → MEDS 09-03 07:48
PROVIDERS: Emergency Medicine; Family Medicine; ADMIT Hospitalist
DX: N17.9 Acute kidney failure, unspecified (principal); N13.8 Other obstructive and reflux uropathy; E87.1 Hypo-osmolality and hyponatremia; I69.351 Hemiplegia and hemiparesis following cerebral infarction affecting right dominant side; N13.6 Pyonephrosis; N18.4 Chronic kidney disease, stage 4 (severe); I25.10 Atherosclerotic heart disease of native coronary artery without angina pectoris; G89.4 Chronic pain syndrome; E86.0 Dehydration; N40.1 Benign prostatic hyperplasia with lower urinary tract symptoms; Z88.2 Allergy status to sulfonamides; Z88.5 Allergy status to narcotic agent; Z88.0 Allergy status to penicillin; Z88.8 Allergy status to other drugs, medicaments and biological substances; G25.81 Restless legs syndrome; I25.2 Old myocardial infarction; Z87.11 Personal history of peptic ulcer disease; I10 Essential (primary) hypertension
CPT/HCPCS: 36415; 51702; 71045; 74176; 76770; 80048; 80053; 80069; 81001; 83605; 83690; 83880; 83930; 84145; 84300; 84443; 84484; 85025; 87040; 87077; 87086; 87106; 87186; 93005; 93010; 96361; 96365; 96375; 97110; 97116; 97162; 97166; 97530; 99285-25; A9270; J0696; J1644; J2405; J7030; J7120

== ENCOUNTER → 2020-10-24 | Outpatient (CLI) | payer MEDICARE ==
[~2020-10-24] MED LIST changes: +Avodart0.5 MG PO; +CIPR500 PO; +LACT PO; +MIRALAX17 GM PO; +OXYB5 PO; +PHENA200 PO; +ROPINIROLE HCL4 M1 PO; +TAMS.4ER PO
== END ==
LOC: LAB SHORT 11:42 → LAB 11:42
DX: N39.0 Urinary tract infection, site not specified (principal); R39.16 Straining to void
CPT/HCPCS: 87077; 87086; 87186

== ENCOUNTER 2020-11-10 18:49 | Inpatient (IN) | payer MEDICARE ==
[~2020-11-10] VITALS: Ht 180.3 cm; Wt 69.2 kg
[~2020-11-10 18:49] MED LIST changes: -CIPR500 PO; -LACT PO; -OXYB5 PO
[2020-11-10 19:17] LABS: BASOPHILS ABSOLUTE AUTO 0.06 K/mm3 (0.00-0.23); BASOPHILS PERCENT AUTO 0 % (0-2); EOSINOPHILS ABSOLUTE AUTO 0.01 K/mm3 (0.00-0.68); EOSINOPHILS PERCENT AUTO 0 % (0-6); Hematocrit 33.1 % (37.0-53.0); Hemoglobin 10.4 g/dL (13.5-17.5); IMMATURE GRAN ABSOLUTE AUTO 0.18 K/mm3 (0.00-0.10); IMMATURE GRAN PERCENT AUTO 1 % (0-1); LYMPHOCYTES ABSOLUTE AUTO 1.41 K/mm3 (0.84-5.20); LYMPHOCYTES PERCENT AUTO 8 % (21-46); MONOCYTES ABSOLUTE AUTO 1.76 K/mm3 (0.16-1.47); MONOCYTES PERCENT AUTO 11 % (4-13); Mean Corpuscular HGB 28.8 pg (26.0-34.0); Mean Corpuscular HGB Conc 31.4 g/dL (31.5-36.5); Mean Corpuscular Volume 92 fL (80-100); Mean Platelet Volume 9.3 fL (9.1-12.4); NEUTROPHILS ABSOLUTE AUTO 13.28 K/mm3 (1.96-9.15); NEUTROPHILS PERCENT AUTO 80 % (41-73); Platelet Count 574 K/mm3 (150-400); RDW Standard Deviation 47.5 fL (35.1-46.3); Red Blood Cell Count 3.61 M/mm3 (4.30-5.90)
[2020-11-10 19:30] LABS: Source, Urine Catheter
[2020-11-10 19:33] LABS: Bilirubin, Urine Neg (Neg); Blood, Urine 5+ (Neg); Glucose Qualitative, Urine Neg (Neg); Ketones, Urine 2+ (Neg); Leukocyte Esterase, Urine 3+ (Neg); Nitrite, Urine Neg (Neg); Protein, Urine 3+ (Neg); Urobilinogen, Urine NORM (Normal)
[2020-11-10 19:39] LABS: Appearance, Urine Turbid (Clear); Color, Urine Pale Yellow (P-Yellow)
[2020-11-10 19:41] LABS: Bacteria Many /hpf; Red Blood Cells, Urine TNTC /hpf (0-2); Squamous Epithelial Cells Not Seen /hpf (Few); White Blood Cells, Urine TNTC /hpf (0-5)
[2020-11-10 19:45] LABS: Troponin I <0.015 ng/mL (0.000-0.040)
[2020-11-10 19:49] LABS: Thyroid Stimulating Hormone 0.974 uIU/mL (0.360-4.800)
[2020-11-10 20:11] LABS: Alanine Aminotransfer (ALT/SGP <6 U/L (12-78); Albumin/Globulin Ratio 0.4 (0.8-1.8); Alk Phos 84 U/L (50-136); Anion Gap 13 mmol/L (6-16); Aspartate Aminotrans (AST/SGOT 10 U/L (12-37); Bilirubin, Total 0.5 mg/dL (0.1-1.0); Blood Urea Nitrogen 63 mg/dL (8-24); Bun/Creatinine Ratio 12.2 (12.0-20.0); CO2, Blood 14 mmol/L (21-32); Calcium, Blood 9.1 mg/dL (8.5-10.1); Chloride, Blood 105 mmol/L (98-108); Creatinine, Blood 5.18 mg/dL (0.60-1.20); Glomerular Filtration Rate 12 (60-); Glucose, Blood 167 mg/dL (70-99); Potassium, Blood 5.1 mmol/L (3.5-5.5); Sodium, Blood 132 mmol/L (136-145)
--- NOTE | 2020-11-11 00:28 | NUR ---
PATIENT IS A NEW ADMIT FROM THE ED. THREE PERSON TRANSFER FROM [facility] TO BED. AXOX 3 AND MILD SLOW TO RESPOND. ON ROOM AIR. CYNTHIA PRESENT ON ADMIT FOR RETENTION. NS INFUSING AT 100 mL/HR. IV ABX INFUSED. PATIENT ORIENTED TO ROOM AND CALL LIGHT SYSTEM. DENIES CHEST PAIN, SOB, AND N/V. WARM BLANKET PROVIDED. PATIENT REPORTS HE WILL WATCHED TV AT THIS TIME. CALL LIGHT IN REACH.
--- NOTE | 2020-11-11 03:24 | NUR ---
SHIFT SUMMARY PATIENT HAD NO ACUTE CHANGES OBSERVED. AXOX 3 AND SLOW TO RESPOND AT TIMES. LACTIC 2.8 DOWN TO 1.2. TWO PERSON ASSIST W/FWW TO BSC. USES URINAL AT BEDSIDE. ON ROOM AIR. MARIE PATENT AND DRAINING TO GRAVITY. PIVS REMAIN INTACT. NS INFUSING AT 100 mL/HR. IV ABX INFUSED. REPORTS MILD ABDOMINAL PAIN. DENIES SOB AND N/V. VSS/AFEBRILE. REFUSED CPAP PER RT. CALL LIGHT IN REACH. BED IN LOWEST POSITION. WILL CONTINUE TO MONITOR UNTIL DAY SHIFT NURSE ASSUMES CARE.
[2020-11-11 05:14] LABS: BASOPHILS ABSOLUTE AUTO 0.02 K/mm3 (0.00-0.23); BASOPHILS PERCENT AUTO 0 % (0-2); EOSINOPHILS ABSOLUTE AUTO 0.01 K/mm3 (0.00-0.68); EOSINOPHILS PERCENT AUTO 0 % (0-6); Hemoglobin 8.9 g/dL (13.5-17.5); IMMATURE GRAN ABSOLUTE AUTO 0.07 K/mm3 (0.00-0.10); IMMATURE GRAN PERCENT AUTO 1 % (0-1); LYMPHOCYTES ABSOLUTE AUTO 1.14 K/mm3 (0.84-5.20); LYMPHOCYTES PERCENT AUTO 10 % (21-46); MONOCYTES ABSOLUTE AUTO 1.23 K/mm3 (0.16-1.47); MONOCYTES PERCENT AUTO 11 % (4-13); Mean Corpuscular HGB Conc 31.8 g/dL (31.5-36.5); Mean Corpuscular Volume 91 fL (80-100); NEUTROPHILS ABSOLUTE AUTO 8.57 K/mm3 (1.96-9.15); NEUTROPHILS PERCENT AUTO 78 % (41-73); Platelet Count 424 K/mm3 (150-400); RDW Coefficient Variation 14.1 % (11.7-14.2); RDW Standard Deviation 47.2 fL (35.1-46.3); Red Blood Cell Count 3.07 M/mm3 (4.30-5.90); White Blood Cell Count 11.04 K/mm3 (4.00-11.30)
[2020-11-11 05:48] LABS: Bun/Creatinine Ratio 13.6 (12.0-20.0); Calcium, Blood 8.5 mg/dL (8.5-10.1); Creatinine, Blood 4.41 mg/dL (0.60-1.20); Potassium, Blood 4.7 mmol/L (3.5-5.5)
--- NOTE | 2020-11-11 08:42 | NUR ---
Pt is alert, oriented. He is sitting up in bed and eating breakfast without difficulty. Pt complains of restless leg syndrome and pain. Called and spoke with Dr. Sandoval. Orders placed for home meds. Meds given and new IV fluids started. Notes and chart reviewed.
--- NOTE | 2020-11-11 19:01 | NUR ---
Shift Summary: Obtained orders for pain medication this AM. Pt was medicated twice during the day. Requip for evening. pt has no concerns at this time. He had a good appetite today, waiting for stool sample for guiac
--- NOTE | 2020-11-12 03:16 | NUR ---
SHIFT SUMMARY PATIENT HAD NO ACUTE CHANGES OBSERVED. AXOX 4 AND BEDREST. MARIE PATENT AND DRAINING TO GRAVITY FOR RETENTION. TAKES MEDICATION WHOLE WITH WATER. REPORTED ABDOMINAL PAIN X ONE AND OXYCODONE 5 MG GIVEN PER EMAR. PIVS REMAIN INTACT. SODIUM BICARB INFUSING AT 75 mL/HR. DENIES SOB AND N/V. WATCHED TV FIRST PART OF SHIFT. COOPERATIVE WITH CARE. CALL LIGHT IN REACH. BED IN LOWEST POSITION. WILL CONTINUE TO MONITOR UNTIL DAY SHIFT NURSE ASSUMES CARE.
[2020-11-12 05:22] LABS: Hematocrit 27.9 % (37.0-53.0); Hemoglobin 8.8 g/dL (13.5-17.5)
[2020-11-12 05:47] LABS: Albumin, Blood 1.8 g/dL (3.4-5.0); Anion Gap 7 mmol/L (6-16); Blood Urea Nitrogen 50 mg/dL (8-24); Bun/Creatinine Ratio 14.2 (12.0-20.0); CO2, Blood 23 mmol/L (21-32); Calcium, Blood 8.3 mg/dL (8.5-10.1); Chloride, Blood 104 mmol/L (98-108); Creatinine, Blood 3.52 mg/dL (0.60-1.20); Glomerular Filtration Rate 18 (60-); Glucose, Blood 94 mg/dL (70-99); Magnesium, Blood 1.8 mg/dL (1.6-2.4); Phosphorus, Blood 2.4 mg/dL (2.5-4.9); Potassium, Blood 3.9 mmol/L (3.5-5.5); Sodium, Blood 134 mmol/L (136-145)
--- NOTE | 2020-11-12 07:27 | NUR ---
ASSUMED CARE: PT RESTING QUIETLY AT THIS TIME. NO ACUTE NEEDS OR CONCERNS
--- NOTE | 2020-11-12 18:25 | NUR ---
SHIFT SUMMARY: PT WORKED WITH PT/OT THIS SHIFT. POSSIBLE DC IN NEXT FEW DAYS. ABX CHANGED PER BLOOD CULTURES. FLUIDS CHANGED PER DR FORREST. MEDICATED FOR PAIN X2. NO ACUTE NEEDS OR CONCERNS AT THIS TIME.
[2020-11-13 05:23] LABS: BASOPHILS ABSOLUTE AUTO 0.07 K/mm3 (0.00-0.23); BASOPHILS PERCENT AUTO 1 % (0-2); EOSINOPHILS ABSOLUTE AUTO 0.12 K/mm3 (0.00-0.68); EOSINOPHILS PERCENT AUTO 2 % (0-6); Hematocrit 27.1 % (37.0-53.0); Hemoglobin 8.7 g/dL (13.5-17.5); IMMATURE GRAN ABSOLUTE AUTO 0.09 K/mm3 (0.00-0.10); IMMATURE GRAN PERCENT AUTO 1 % (0-1); LYMPHOCYTES PERCENT AUTO 20 % (21-46); MONOCYTES ABSOLUTE AUTO 0.83 K/mm3 (0.16-1.47); MONOCYTES PERCENT AUTO 13 % (4-13); Mean Corpuscular HGB Conc 32.1 g/dL (31.5-36.5); Mean Corpuscular Volume 90 fL (80-100); NEUTROPHILS ABSOLUTE AUTO 3.96 K/mm3 (1.96-9.15); NEUTROPHILS PERCENT AUTO 62 % (41-73); Platelet Count 368 K/mm3 (150-400); RDW Coefficient Variation 13.7 % (11.7-14.2); RDW Standard Deviation 45.7 fL (35.1-46.3); White Blood Cell Count 6.37 K/mm3 (4.00-11.30)
--- NOTE | 2020-11-13 05:30 | NUR ---
SUMMARY: PT A/OX4, CALLS APPROPRIATELY AND IS PLEASANT/COOPERATIVE W/CARE. CHRONIC MARIE IS PATENT/DRAINING. NS INFUSES AT 75 ML/HR AND IV ABX RECIEVED PER EMAR. PT MEDICATED W/ROXICODONE RECIEVE X1 FOR FOR TOLERABLE RELIEF OF ABDO PAIN. HE REPOSITIONS SELF IN BED BUT REQUIRES SOME ENCOURAGEMENT TO INCREASE OOB ACTIVITY W/FWW AND GB. NO ACUTE CHANGES, VSS/AFEBRILE. WCTM AND REPORT TO DAY RN.
[2020-11-13 05:46] LABS: Anion Gap 6 mmol/L (6-16); Blood Urea Nitrogen 39 mg/dL (8-24); Bun/Creatinine Ratio 12.6 (12.0-20.0); CO2, Blood 24 mmol/L (21-32); Calcium, Blood 7.9 mg/dL (8.5-10.1); Chloride, Blood 104 mmol/L (98-108); Creatinine, Blood 3.09 mg/dL (0.60-1.20); Glomerular Filtration Rate 21 (60-); Glucose, Blood 99 mg/dL (70-99); Potassium, Blood 4.3 mmol/L (3.5-5.5); Prostate Specific Antigen 0.386 ng/mL (0.000-4.000); Sodium, Blood 134 mmol/L (136-145); Vancomycin, Random 11.3 ug/mL
[2020-11-13] MEDS ORDERED: LACT PO (13:39)
[2020-11-13] MEDS ORDERED: OXYB5 PO (13:41)
[2020-11-13] MEDS ORDERED: CIPR500 PO (13:41)
--- NOTE | 2020-11-13 17:10 | NUR ---
SUMMARY PT DISCHARGED TO HOME, WAITING FOR SPOUSE TO GET OFF WORK, WILL GO OVER PAPERS ONCE SHE IS HERE, WILL CONT TO MONITOR
--- NOTE | 2020-11-13 19:58 | NUR ---
[facility] (ARABELLA CERRATO) PROVIDED D/C INSTRUCTIONS TO PT AND HIS . 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 PT APPEARED STABLE W/O ANY COMPLAINTS OR Q'S AT THE TIME.
== END 2020-11-13 19:46 | disposition home or self-care (01) | DRG 698 ==
LOC: ER 18:49 → MEDS 21:41
PROVIDERS: Emergency Medicine; Hospitalist; Internal Medicine Nephrology; ADMIT Family Medicine
DX: T83.511A Infection and inflammatory reaction due to indwelling urethral catheter, initial encounter (principal); A41.59 Other Gram-negative sepsis; R65.20 Severe sepsis without septic shock; I69.351 Hemiplegia and hemiparesis following cerebral infarction affecting right dominant side; N17.9 Acute kidney failure, unspecified; E87.2 Acidosis; E87.1 Hypo-osmolality and hyponatremia; N18.4 Chronic kidney disease, stage 4 (severe); N30.01 Acute cystitis with hematuria; E78.5 Hyperlipidemia, unspecified; G25.81 Restless legs syndrome; G47.33 Obstructive sleep apnea (adult) (pediatric); I25.10 Atherosclerotic heart disease of native coronary artery without angina pectoris; I12.9 Hypertensive chronic kidney disease with stage 1 through stage 4 chronic kidney disease, or unspecified chronic kidney disease; E83.39 Other disorders of phosphorus metabolism; N40.0 Benign prostatic hyperplasia without lower urinary tract symptoms; D63.1 Anemia in chronic kidney disease; E21.3 Hyperparathyroidism, unspecified; B96.4 Proteus (mirabilis) (morganii) as the cause of diseases classified elsewhere; R63.4 Abnormal weight loss; Z68.23 Body mass index [BMI] 23.0-23.9, adult; I25.2 Old myocardial infarction; Z87.11 Personal history of peptic ulcer disease; Z99.89 Dependence on other enabling machines and devices; Z98.890 Other specified postprocedural states; Z88.0 Allergy status to penicillin; Z88.2 Allergy status to sulfonamides; Z88.5 Allergy status to narcotic agent; Z88.8 Allergy status to other drugs, medicaments and biological substances; Y84.6 Urinary catheterization as the cause of abnormal reaction of the patient, or of later complication, without mention of misadventure at the time of the procedure
CPT/HCPCS: 36415; 51702; 74176; 80048; 80053; 80069; 80202; 81001; 83605; 83735; 84443; 84484; 85014; 85018; 85025; 87040; 87077; 87086; 87186; 93005; 93010; 96361-59; 96365-59; 96375-59; 97110; 97116; 97162; 97165; 97535; 99285-25; A9270; C9113; G0103; J0696; J0744; J1170; J1644; J2405; J3370; J7030; J7060